=== PATIENT | female | born 1945 ===

== ENCOUNTER → 2018-07-01 20:02 | Outpatient (REF) | payer MEDICARE, SELFPAY ==
[2018-07-01 20:17] LABS: Add Manual Diff / Slide Review NO; Basophils Absolute Auto 100 /uL (0-100); Basophils Percent Auto 1.6 % (0-2); Eosinophils Absolute Auto 400 /uL (0-450); Eosinophils Percent Auto 4.3 % (2-4); Hematocrit 45.1 % (36-46); Hemoglobin 14.9 g/dL (12.0-16.0); Lymphocytes Absolute Auto 2200 /uL (1100-4500); Mean Corpuscular Hemoglobin 28.4 PG (26-34); Mean Corpuscular Volume 86.1 fL (80-100); Monocytes Absolute Auto 600 /uL (0-900); Monocytes Percent Auto 7.1 % (3-14); Neutrophils Absolute Auto 5200 /uL (1500-7000); Platelet Count 484 X10^3/uL (150-400); Red Blood Cell Count 5.24 X10^6/uL (4.0-5.2); Red Cell Distribution Width 13.9 % (11.6-14.8); White Blood Cell Count 8.5 X10^3/uL (4.5-11.0)
[2018-07-01 20:23] LABS: Alanine Aminotransferase 58 IU/L (9-52); Albumin 4.6 g/dL (3.5-5.0); Albumin Globulin Ratio 1.8 (1.0-2.8); Alkaline Phosphatase 87 U/L (38-126); Aspartate Aminotransferase 27 IU/L (14-36); BUN Creatinine Ratio 27.1 (6-22); Bilirubin Total 0.5 mg/dL (0.2-1.3); Blood Urea Nitrogen 19 mg/dL (7-17); Calcium 11.1 mg/dL (8.4-10.2); Carbon Dioxide 28 mmol/L (22-32); Chloride 101 mmol/L (98-107); Cholesterol 184 mg/dL (140-199); Estimated Glomerular Filt Rate > 60.0 mL/min (>60); Globulin 2.6 g/dL (1.7-4.1); Glucose 124 mg/dL (80-110); HDL Cholesterol 51 mg/dL (40-60); HEMOLYSIS < 15 (0-50); LDL Cholesterol Calculated 68 mg/dL (<100); Sodium 141 mmol/L (137-145); Total Protein 7.2 g/dL (6.3-8.2); Triglycerides 326 mg/dL (35-150)
[2018-07-01 20:36] LABS: Hemoglobin A1C% w Est Avg Glu 6.5 % (4.0-6.0)
== END ==
LOC: LAB 20:02
PROVIDERS: Visit Provider Family Medicine Geriatric Medicine
DX: E78.5 Hyperlipidemia, unspecified (principal); E11.9 Type 2 diabetes mellitus without complications
CPT/HCPCS: 36415; 80053; 80061; 83036; 85025

== ENCOUNTER → 2018-07-12 18:30 | Outpatient (REF) | payer MEDICARE, SELFPAY ==
[2018-07-12 19:48] LABS: Calcium 10.8 mg/dL (8.4-10.2); Phosphorous 4.1 mg/dL (2.8-4.1)
[2018-07-16 10:46] LABS: Estimated Glomerular Filt Rate > 60.0 mL/min (>60)
[2018-07-16 13:53] LABS: Parathyroid Hormone Int 35 pg/mL (14-64)
== END ==
LOC: LAB 18:30
PROVIDERS: Visit Provider Family Medicine Geriatric Medicine
DX: E21.5 Disorder of parathyroid gland, unspecified (principal); Z01.812 Encounter for preprocedural laboratory examination; E04.1 Nontoxic single thyroid nodule
CPT/HCPCS: 36415; 82310; 82565; 83970; 84100

== ENCOUNTER 2019-04-02 16:28 | Emergency (ER) | payer MEDICARE, SELFPAY ==
--- NOTE | 2019-04-02 16:33 | DI.CT.S_ITS ---
PROCEDURE: CT HEAD/BRAIN WO CON INDICATIONS: fall out bed recent craniotomy TECHNIQUE: Noncontrast 4.5 mm thick angled axial sections acquired from the foramen magnum to the vertex, with coronal and sagittal reformats. For radiation dose reduction, the following was used: automated exposure control, adjustment of mA and/or kV according to patient size. COMPARISON: None. FINDINGS: Image quality: Excellent. Brain: There are postsurgical changes status post left frontal-temporal craniotomy with partial resection of the left temporal lobe. There are 2 small indistinct curvilinear areas of high attenuation along the posterior and medial margins of the surgical cavity compatible with blood product of indeterminate acuity. There is also a linear region of high attenuation along the anteroinferior aspect of the surgical tract which may represent blood product or surgical mesh. Elsewhere, a small amount of residual subdural fluid and gas is demonstrated consistent with recent surgery. There is minimal rightward midline shift of approximately 3 mm. There is a small region of the encephalomalacia within the anterior left frontal lobe at the vertex. Skull and face: Post surgical changes are demonstrated consistent with prior left frontal temporal craniotomy. No definite acute fractures. Sinuses: Visualized sinuses and mastoids are clear. IMPRESSION: 1. Extensive post surgical changes demonstrated status post left frontal-temporal craniotomy and temporal lobe resection as described. 2. Small areas of curvilinear high attenuation along the posterior and medial margins of the surgical cavity are compatible with the product of indeterminate acuity. The differential also includes possible high density tumor given history of meningioma. Recommend comparison with prior outside studies when available. 3. Small region of high attenuation along the anteroinferior margin of the surgical cavity and also represent a small amount of blood product versus high attenuation related to the surgical mesh. 4. Minimal rightward midline shift of approximately 3 mm. Findings discussed with Dr. Shen on 04/02/19 at 5:15 PM. Dictated by: Indra Betancur M.D. on 04/02/2019 at 17:06 Approved by: Indra Betancur M.D. on 04/02/2019 at 17:16
[2019-04-02 16:39] VITALS: BP 154/106; PULSE 95; RESP 16; O2SAT 96
--- NOTE | 2019-04-02 16:39 | ED.HEATRA ---
HPI - Head Injury General Chief complaint: Fall Stated complaint: Fall Time Seen by Provider: 04/02/19 16:33 Source: patient, EMS and old records reviewed History of Present Illness HPI Narrative: Patient is a 73-year-old female with history of malignant meningioma of the brain with recent craniotomy and admission to [facility]. [facility] and [facility] to [facility]. She has been at 50 elbow today. She unfortunately rolled out of bed she has a scrape on her head. She does have some baseline mental capacity problems and speech difficulty. states that she is at her baseline. She is possibly getting subcu heparin still it is unclear if she got that today. She has a very small superficial scrape on the top of her scalp. She is able to follow commands. But overall is an extremely poor historian, and not able to communicate well MD Complaint: head injury Review of Systems Review of Systems ROS Unobtainable: Unobtainable due to medical condition Exam Initial Vital Signs Initial Vital Signs: Vital Signs Pulse Rate 95 H 04/02/19 16:39 Respiratory Rate 16 04/02/19 16:39 Blood Pressure 154/106 H 04/02/19 16:39 Pulse Oximetry 96 04/02/19 16:39 GENERAL: Alert female good eye contact HEENT: Head atraumatic superficial scrape at the top of her head postsurgical change,EOMI, pupils reactive, face symmetric, CARDIOVASCULAR: Regular rate and rhythm without murmurs, rubs or gallops. RESPIRATORY: Breath sounds equal bilaterally, no wheezes rales or rhonchi. ABDOMEN: Soft, nontender. Normoactive bowel sounds all 4 quadrants. No guarding or rebound. EXTREMITIES: Normal range of motion, no clubbing or edema. Neurovascularly intact NEUROLOGICAL: Alert speech is clear but has word salad SKIN: Warm, dry, no laceration, no petechiae, no rashes or lesions. Course Orders Ordered: ED Orders 04/02/19 16:33 CT head/brain wo con Stat Vital Signs Vital signs: Vital Signs - 8 hr 04/02/19 16:39 04/02/19 17:33 04/02/19 18:35 Pulse Rate 95 H 92 H 91 H Respiratory Rate 16 12 14 Blood Pressure 154/106 H Blood Pressure [Left Arm] 149/83 H 153/82 H Pulse Oximetry 96 99 96 MDM - Head Injury Imaging Data CT scan - head: Radiologist's impression: PROCEDURE: CT HEAD/BRAIN WO CON INDICATIONS: fall out bed recent craniotomy TECHNIQUE: Noncontrast 4.5 mm thick angled axial sections acquired from the foramen magnum to the vertex, with coronal and sagittal reformats. For radiation dose reduction, the following was used: automated exposure control, adjustment of mA and/or kV according to patient size. COMPARISON: None. FINDINGS: Image quality: Excellent. Brain: There are postsurgical changes status post left frontal-temporal craniotomy with partial resection of the left temporal lobe. There are 2 small indistinct curvilinear areas of high attenuation along the posterior and medial margins of the surgical cavity compatible with blood product of indeterminate acuity. There is also a linear region of high attenuation along the anteroinferior aspect of the surgical tract which may represent blood product or surgical mesh. Elsewhere, a small amount of residual subdural fluid and gas is demonstrated consistent with recent surgery. There is minimal rightward midline shift of approximately 3 mm. There is a small region of the encephalomalacia within the anterior left frontal lobe at the vertex. Skull and face: Post surgical changes are demonstrated consistent with prior left frontal temporal craniotomy. No definite acute fractures. Sinuses: Visualized sinuses and mastoids are clear. IMPRESSION: 1. Extensive post surgical changes demonstrated status post left frontal-temporal craniotomy and temporal lobe resection as described. 2. Small areas of curvilinear high attenuation along the posterior and medial margins of the surgical cavity are compatible with the product of indeterminate acuity. The differential also includes possible high density tumor given history of meningioma. Recommend comparison with prior outside studies when available. 3. Small region of high attenuation along the anteroinferior margin of the surgical cavity and also represent a small amount of blood product versus high attenuation related to the surgical mesh. 4. Minimal rightward midline shift of approximately 3 mm. Findings discussed with Dr. Shen on 04/02/19 at 5:15 PM. Dictated by: Indra Betancur M.D. on 04/02/2019 at 17:06 Approved by: Indra Betancur M.D. on 04/02/2019 at 17:16 [facility] Narrative Medical decision making narrative: I received records from [facility]. It does appear that she had some sort imaging done on 04/01/2019 MRI of the brain. I discussed case with the radiologist who read her head CT I read him the report over the phone. Unable to push images to directly compare the images. However reports remained similar.Patient clinically does not appear that she had significant trauma to the head. She continues to be at her baseline mental status per the . She will return to [facility] rehab facility. Discharge Plan Departure Patient Disposition: Home Clinical Impression: Closed head injury Qualifiers: Encounter type: initial encounter Qualified Code(s): S09.90XA - Unspecified injury of head, initial encounter Discharge Date/Time: 04/02/19 19:15 Instructions: Closed Head Injury Activity Restrictions/Additional Instructions: *You have been diagnosed with closed head injury *What to do: At this time scans look relatively stable and the same *Continue to take medications as directed *Follow up with your primary care provider in 2-3 days *Return to ER if you should have change in behavior, confusion, recurrent falls or any new, worsening or concerning symptoms
[2019-04-02 17:33] VITALS: BP 149/83; PULSE 92; RESP 12; O2SAT 99
[2019-04-02 18:35] VITALS: BP 153/82; PULSE 91; RESP 14; O2SAT 96
== END 2019-04-02 19:15 | disposition home or self-care (01) ==
PROVIDERS: Emergency Provider Emergency Medicine
DX: S09.90XA Unspecified injury of head, initial encounter (principal); R41.82 Altered mental status, unspecified; Z98.890 Other specified postprocedural states; W06.XXXA Fall from bed, initial encounter
CPT/HCPCS: 70450; 99283; 99284

== ENCOUNTER 2019-04-03 13:07 | Emergency (ER) | payer MEDICARE, SELFPAY ==
[2019-04-03 13:16] VITALS: BP 150/89; PULSE 98; RESP 16; TEMP 37; O2SAT 95
--- NOTE | 2019-04-03 13:18 | ED_ITS ---
HPI - Altered Mental Status General Chief Complaint: Neuro Symptoms/Deficit Stated Complaint: mental status change Time Seen by Provider: 04/03/19 13:07 Source: EMS Mode of arrival: EMS Limitations: altered mental status History of Present Illness HPI narrative: Patient sent to the emergency department for alteration in mental status, according to her care facility. Medics state that they were called and that when they arrived at the facility, nobody seemed to know the patient, and they were told the patient's nurse was not available, as shift change should just occurred. The medics state that they were told by the staff that was there that the patient had been awake earlier in the day and now was very sleepy. The patient just arrived at [facility] yesterday after an extended admission and left frontotemporal craniotomy for meningioma. The patient was sent to the emergency department yesterday by different staff for a similar episode of falling deeply asleep after being distinctly awake. The patient was worked up with labs, urinalysis, and CT scan of the brain, which did not show anything acute or emergently concerning. The patient was discharged back to the facility where she has not developed any further problems overnight. The patient is not able to offer any information at this time, as she is heavily somnolent. Related Data Home Medications Medication Instructions Recorded Confirmed amlodipine 5 mg PO DAILY 04/08/19 04/08/19 ascorbic acid (vitamin C) 1,000 mg PO DAILY 04/08/19 04/08/19 atorvastatin 10 mg PO BEDTIME 04/08/19 04/08/19 bisacodyl 10 mg [place] DAILY PRN 04/08/19 04/08/19 cholecalciferol (vitamin D3) 5,000 unit PO BID 04/08/19 04/08/19 [Vitamin D3] cyanocobalamin (vitamin B-12) 500 mcg PO DAILY 04/08/19 04/08/19 heparin (porcine) 5,000 unit SUBCUT Q12H 04/08/19 04/08/19 insulin lispro 1 sliding scale dose SUBCUT 04/08/19 04/08/19 USEASDIRECTD lacosamide 300 mg PO BID 04/08/19 04/08/19 levetiracetam 750 mg PO BID 04/08/19 04/08/19 metformin 500 mg PO BID 04/08/19 04/08/19 omega-3 fatty acids-fish oil [Fish 1 cap PO DAILY 04/08/19 04/08/19 Oil] ondansetron 4 mg PO Q8H PRN 04/08/19 04/08/19 sodium chloride 1,000 mg PO QD-QID 04/08/19 04/08/19 tamsulosin 0.4 mg PO QPM 04/08/19 04/08/19 vitamin E 400 unit PO DAILY 04/08/19 04/08/19 Allergies Allergy/AdvReac Type Severity Reaction Status Date / Time No Known Drug Allergies Allergy Verified 04/03/19 13:25 Review of Systems Review of Systems ROS Unobtainable: Unobtainable due to mental status/LOC Patient History Medical History Closed head injury (Inactive) Meningioma (Acute) Surgical History H/O craniotomy (Acute) S/P lobectomy of brain (Acute) Family History (Updated 04/08/19 @ 01:53 by ANGE Salas) Father Cancer Mother Alcoholic Brother No significant medical problems Sister No significant medical problems Social History Smoking Status: Former smoker alcohol intake: current Exam Initial Vital Signs Initial Vital Signs: Vital Signs Temperature 98.6 F 04/03/19 13:16 Pulse Rate 98 H 04/03/19 13:16 Respiratory Rate 16 04/03/19 13:16 Blood Pressure 150/89 H 04/03/19 13:16 Pulse Oximetry 95 04/03/19 13:16 Const General: cooperative (Patient does follow some commands with stimulation.) and well developed Nutritional Appearance: well nourished Orientation: not alert (Patient sits in bed with her eyes closed.) [facility] Head: normocephalic and atraumatic Ears: external ears normal Nose: external nose normal and No nasal discharge Face and sinus: face symmetric and No dry mucous membranes Mouth: oral mucosae normal and moist mucous membranes Teeth and gingiva: dentition normal Eyes General: appearance normal, both eyes and all related structures Eyelids: eyelids normal Conjunctivae: conjunctivae normal Sclera: sclerae normal Pupils: PERRL EOM: EOM intact bilaterally Neck Neck: normal visual inspection, trachea midline, No lymphadenopathy, No midline deformity and No JVD Lymphatic: No lymphedema Chest Chest: normal inspection of the chest Resp Effort & Inspection: normal respiratory effort, able to speak in complete sentences, no respiratory distress and no use of accessory muscles Auscultation: clear to auscultation bilaterally, no rales, no rhonchi and no wheezes Cardio Rate: regular rate Rhythm: regular rhythm Heart Sounds: no click, no gallops, no murmurs and no rubs Pulses: normal peripheral pulses GI Inspection: non-distended Palpation: soft, no hepatosplenomegaly, No guarding, No pulsatile mass and No tender Back/Spine/Pelvis Back: No CVA tenderness Cervical Spine: cervical ROM normal and No pain with cervical ROM Thoracic/Lumbar Spine: thoracic and lumbar spine normal to inspection Skin General: no rashes or lesions noted, No jaundice and No petechiae Neuro Other: The patient sits in bed with eyes closed. She does not open her eyes or respond to voice, but does say how and reaches her hand toward her chest when I give her a sternal rub. Extrem General: full ROM, no clubbing, cyanosis or edema, no pedal edema and no calf tenderness Psych Appearance: well kempt Mental Status: mental status grossly normal Attitude: cooperative Thought Content: normal and suicidality Judgment: judgment good Course Course Course Narrative: I did review the patient's records, as she was just here yesterday for the same thing and the medics felt that the patient was not any different today than she had been yesterday. The patient is DNR with comfort measures only, and I did not feel that it was appropriate to do tests on her if this is a similar occurrence to yesterday and she has already had extensive workup for it. The patient was quite somnolent in the emergency department, but when I placed an ammonia capsule under her nose, she did immediately began to arouse and became alert and was able to answer some questions. The patient had no complaints upon questioning, when she was awake, and given her large and negative workup yesterday did not feel that a repeat workup was indicated, as patient was arousable, hemodynamically stable, and without complaints. Orders Ordered: Discontinued Medications Ammonia (Aromatic Spirit) (Ammonia Inhalant) 1 each INH NOW ONE Stop: 04/03/19 13:16 Last Admin: 04/03/19 13:46 Dose: 1 each Documented by: [facility] - Altered Mental Status Medical Records Attestation: I reviewed the patient's medical records. Discharge Plan Departure Patient Disposition: Home Clinical Impression: Acute on chronic alteration in mental status Discharge Date/Time: 04/03/19 15:40 Instructions: DI for Altered Mental Status Activity Restrictions/Additional Instructions: No emergent cause of Kady's symptoms has been found today. She was easily arousable with olfactory stimuli. Extensive workup, including labs and CT scan of the head, was done yesterday for the same symptoms and was negative. There is no indication for repeat head CT today. Kady's vital signs are normal. Given her desire for comfort measures only, it is not appropriate at this time to subject her to extensive testing that has been done within the last 24 hours already. She will need plenty of rest during these weeks of recovery, and should be allowed to do so. If Kady develops fevers or vomiting, or new neurologic deficits, then family may be consulted to determine whether they would like to have her further evaluated or not. Prescriptions: No Action metformin 500 mg Tablet 500 mg PO BID RF: 0 ascorbic acid (vitamin C) 1,000 mg Tablet 1,000 mg PO DAILY RF: 0 atorvastatin 10 mg Tablet 10 mg PO BEDTIME RF: 0 sodium chloride 1 gram Tablet 1,000 mg PO QD-QID RF: 0 amlodipine 5 mg Tablet 5 mg PO DAILY RF: 0 bisacodyl 10 mg Suppository 10 mg [place] DAILY PRN (Reason: Constipation) RF: 0 levetiracetam 750 mg Tablet 750 mg PO BID RF: 0 ondansetron 4 mg Tablet,Disintegrating 4 mg PO Q8H PRN (Reason: Nausea) RF: 0 heparin (porcine) 5,000 unit/mL Solution 5,000 unit SUBCUT Q12H RF: 0 insulin lispro 100 unit/mL Cartridge 1 sliding scale dose SUBCUT USEASDIRECTD RF: 0 lacosamide 100 mg Tablet 300 mg PO BID RF: 0 cyanocobalamin (vitamin B-12) 500 mcg Tablet 500 mcg PO DAILY RF: 0 tamsulosin 0.4 mg Capsule 0.4 mg PO QPM RF: 0 vitamin E 400 unit Capsule 400 unit PO DAILY RF: 0 cholecalciferol (vitamin D3) [Vitamin D3] 1,000 unit Capsule 5,000 unit PO BID RF: 0 omega-3 fatty acids-fish oil [Fish Oil] 360-1,200 mg Capsule 1 cap PO DAILY RF: 0
--- NOTE | 2019-04-03 13:44 | PC.NURSE ---
medics reports that she has been having a decrease in her mental status. pt woke up with ammonia inhalant that md used at bedside. very soft spoken. few words.
[2019-04-03] MEDS: AMMONIA INHALANT 1 EACH INH (13:46)
[2019-04-03 13:57] VITALS: BP 139/98; PULSE 103; RESP 20; O2SAT 96
--- NOTE | 2019-04-03 14:09 | PC.NURSE ---
report given to angie del toro at [facility].
[2019-04-03 14:15] VITALS: BP 159/95; PULSE 108; RESP 12; O2SAT 99
[2019-04-03 15:30] VITALS: BP 154/90; PULSE 104; RESP 19; O2SAT 97
== END 2019-04-03 15:40 | disposition home or self-care (01) ==
PROVIDERS: Emergency Provider Emergency Medicine
DX: R41.82 Altered mental status, unspecified (principal)
CPT/HCPCS: 93041; 99283

== ENCOUNTER 2019-04-07 22:45 | Observation (INO) | payer MEDICARE, SELFPAY ==
--- NOTE | 2019-04-07 22:46 | DI.CT.S_ITS ---
PROCEDURE: CT HEAD/BRAIN WO CON INDICATIONS: stroke TECHNIQUE: Noncontrast 4.5 mm thick angled axial sections acquired from the foramen magnum to the vertex, with coronal and sagittal reformats. For radiation dose reduction, the following was used: automated exposure control, adjustment of mA and/or kV according to patient size. COMPARISON: [facility], CT, CT HEAD/BRAIN WO CON, 04/02/2019, 16:40. FINDINGS: Image quality: Excellent. CSF spaces: Basal cisterns are patent. The ventricles are stable in size and shape. Brain: There are stable postoperative changes from left frontotemporal craniotomy and partial resection of the left temporal lobe. Previously noted hemorrhagic products in the posterior margins of the resection cavity has decreased substantially. Mild residual left to rightward shift of midline structures of approximately 3 mm. Small amount of residual extra-axial fluid and pneumocephalus along the left frontotemporal convexity, underlying the craniotomy site. Mild encephalomalacia involving the vertex at the posterior left parietal region. There is cerebral volume loss for age, with resultant ventricular and sulcal prominence. There are periventricular and deep white matter chronic small vessel ischemic changes. There is intracranial internal carotid artery atherosclerosis. Skull and face: Stable postsurgical changes from left frontotemporal craniotomy. Calvarium and visualized facial bones are otherwise intact, without suspicious lesions. Sinuses: Visualized sinuses and mastoids are clear. IMPRESSION: 1. Stable postsurgical changes of left frontotemporal craniotomy and partial left temporal lobe resection. Interval decrease in amount of hemorrhagic products noted previously in the posterior margins of the resection cavity. 2. Minimal persistent left to rightward shift of midline structures of approximately 3 mm. 3. Stable appearance of persistent pneumocephalus and extra-axial fluid collection along the left frontotemporal convexity at the site of craniotomy. Findings are likely related to surgical change. Findings were discussed with Dr. Mohan by the overnight radiologist at 2312 hrs. No significant discrepancy with the fish fryer radiology preliminary report. Dictated by: Thomas Sellers M.D. on 04/08/2019 at 7:36 Approved by: Thomas Sellers M.D. on 04/08/2019 at 7:53
--- NOTE | 2019-04-07 22:55 | ED.AMS ---
HPI - Altered Mental Status General Chief Complaint: Neuro Symptoms/Deficit Stated Complaint: Code Stroke Time Seen by Provider: 04/07/19 22:46 Source: patient and EMS Mode of arrival: EMS Limitations: altered mental status History of Present Illness HPI narrative: 73F nonsmoker with relatively recent history of resection of malignant melanoma presents to the emergency department as a code stroke due to sudden onset change in mentation approximately 30 minutes prior to her arrival. Patient is brought in by EMS as a code stroke and taken directly to CT scan. She is severely a ton did and not following commands and nursing staff question whether not she had right-sided weakness. She has had no falls, injuries nor fever or vomiting. Patient was discharged from [facility] to [facility] and has had two visits to our ED this week for similar scenarios MD complaint: altered mental status, confusion and decreased responsiveness Onset (ago): minute(s) Timing confirmed by: caregiver Severity: moderate Consistency of symptoms: constant Context: history of similar presentation Treatments prior to arrival: oxygen Related Data Home Medications Medication Instructions Recorded Confirmed amlodipine 5 mg PO DAILY 04/08/19 04/08/19 ascorbic acid (vitamin C) 1,000 mg PO DAILY 04/08/19 04/08/19 atorvastatin 10 mg PO BEDTIME 04/08/19 04/08/19 bisacodyl 10 mg OK DAILY PRN 04/08/19 04/08/19 cholecalciferol (vitamin D3) 5,000 unit PO BID 04/08/19 04/08/19 [Vitamin D3] cyanocobalamin (vitamin B-12) 500 mcg PO DAILY 04/08/19 04/08/19 heparin (porcine) 5,000 unit SUBCUT Q12H 04/08/19 04/08/19 insulin lispro 1 sliding scale dose SUBCUT 04/08/19 04/08/19 USEASDIRECTD lacosamide 300 mg PO BID 04/08/19 04/08/19 levetiracetam 750 mg PO BID 04/08/19 04/08/19 metformin 500 mg PO BID 04/08/19 04/08/19 omega-3 fatty acids-fish oil [Fish 1 cap PO DAILY 04/08/19 04/08/19 Oil] ondansetron 4 mg PO Q8H PRN 04/08/19 04/08/19 sodium chloride 1,000 mg PO QD-QID 04/08/19 04/08/19 tamsulosin 0.4 mg PO QPM 04/08/19 04/08/19 vitamin E 400 unit PO DAILY 04/08/19 04/08/19 Allergies Allergy/AdvReac Type Severity Reaction Status Date / Time No Known Drug Allergies Allergy Verified 04/03/19 13:25 Review of Systems Review of Systems ROS Unobtainable: Unobtainable due to medical condition Patient History Medical History Diabetes type 2, controlled (Acute) Hypertension (Acute) Meningioma (Acute) Mixed hyperlipidemia (Acute) Surgical History H/O craniotomy (Acute) History of hysterectomy (Acute) History of tubal ligation (Acute) S/P lobectomy of brain (Acute) Family History (Updated 04/08/19 @ 01:53 by ANGE Salas) Father Cancer Mother Alcoholic Brother No significant medical problems Sister No significant medical problems Social History Smoking Status: Former smoker alcohol intake: current Substance Use Type: does not use Exam Narrative Exam Narrative: GENERAL: [73] year old patient appears stated age. Obtunded, not following commands, guarding airway. HEAD: Atraumatic. Normocephalic. EYES: Pupils equal round and reactive. Extraocular motions intact. No scleral icterus. No injection or drainage. ENT: Nose without bleeding, purulent drainage. Throat without erythema, tonsillar hypertrophy or exudate. Airway patent. NECK: Trachea midline. Non tender CARDIOVASCULAR: Regular rate and rhythm without murmurs, gallops, or rubs. RESPIRATORY: Clear to auscultation. Breath sounds equal bilaterally. No wheezes, rales, or rhonchi. GASTROINTESTINAL: Abdomen soft, non-tender, nondistended. EXTREMITIES: No edema or joint tenderness. BACK: Nontender without deformity or crepitance. No flank tenderness. SKIN: No rash or erythema of visible areas Initial Vital Signs Initial Vital Signs: Vital Signs Temperature 98.1 F 04/07/19 22:56 Pulse Rate 95 H 04/07/19 22:56 Respiratory Rate 18 04/07/19 22:56 Blood Pressure 187/87 H 04/07/19 22:56 Pulse Oximetry 95 04/07/19 22:56 Scores NIH Stroke Scale Level of Conciousness: Not alert, requires repeated stimulation to attend, or is obtunded Ask month/age: Answers neither question correctly, aphasic, stuporous, coma Open/close eyes, close hand: Performs neither task correctly Best gaze horizontal: Normal Visual barnhart: No visual loss Facial palsy: Normal symetrical movement Left arm drift: Some effort against gravity, cannot maintain, drifts down to bed Right arm drift: Some effort against gravity, cannot maintain, drifts down to bed Left leg drift: Some effort against gravity, cannot maintain, drifts down to bed Right leg drift: Some effort against gravity, cannot maintain, drifts down to bed Limb ataxia: Absent Sensory on face/arms/legs: Severe to total sensory loss, not aware of touch, coma, quadriplegic Best language: Mute, global aphasia Dysarthria: Severe, unintelligible Extinction or inattention: Profound ericka-inattention. Does not recognize own hand, one side Total NIH Stroke scale score: 23 Course Orders Ordered: Amlodipine Besylate (Norvasc) 5 mg PO DAILY [facility] Last Admin: 04/11/19 08:34 Dose: 5 mg Documented by: Admin: 04/10/19 08:42 Dose: 5 mg Documented by: Admin: 04/09/19 08:55 Dose: 5 mg Documented by: Admin: 04/08/19 10:35 Dose: 5 mg Documented by: DAVID Ascorbic Acid (Vitamin C) 1,000 mg PO DAILY [facility] Last Admin: 04/11/19 08:34 Dose: 1,000 mg Documented by: Admin: 04/10/19 08:43 Dose: 1,000 mg Documented by: Admin: 04/09/19 08:55 Dose: 1,000 mg Documented by: Admin: 04/08/19 11:45 Dose: Not Given Documented by: DAVID Atorvastatin Calcium (Lipitor) 10 mg PO BEDTIME [facility] Last Admin: 04/10/19 22:23 Dose: 10 mg Documented by: Admin: 04/09/19 21:26 Dose: 10 mg Documented by: Admin: 04/08/19 21:12 Dose: 10 mg Documented by: AWALKER Bisacodyl (Dulcolax) 10 mg OK DAILY PRN PRN Reason: Constipation Cyanocobalamin (Vitamin B-12) 500 mcg PO DAILY [facility] Last Admin: 04/11/19 08:41 Dose: 500 mcg Documented by: Admin: 04/10/19 08:42 Dose: 500 mcg Documented by: Admin: 04/09/19 08:56 Dose: 500 mcg Documented by: Admin: 04/08/19 11:45 Dose: Not Given Documented by: DAVID Dextrose (D50w) 25 gm IV PRN PRN; Protocol PRN Reason: Hypoglycemia Docusate Sodium (Colace) 100 mg PO BID [facility] Last Admin: 04/11/19 08:34 Dose: 100 mg Documented by: Admin: 04/10/19 22:23 Dose: 100 mg Documented by: Admin: 04/10/19 08:42 Dose: 100 mg Documented by: Admin: 04/09/19 21:26 Dose: 100 mg Documented by: TRISTEN Heparin Sodium (Porcine) (Heparin) 5,000 unit SUBCUT BID [facility] Last Admin: 04/11/19 08:34 Dose: 5,000 unit Documented by: Admin: 04/10/19 22:23 Dose: 5,000 unit Documented by: Admin: 04/10/19 08:42 Dose: 5,000 unit Documented by: Admin: 04/09/19 21:26 Dose: 5,000 unit Documented by: Admin: 04/09/19 08:56 Dose: 5,000 unit Documented by: Admin: 04/08/19 21:12 Dose: 5,000 unit Documented by: Admin: 04/08/19 10:35 Dose: 5,000 unit Documented by: DAVID Sodium Chloride (Normal Saline 0.9%) 1,000 mls @ 100 mls/hr IV CONT [facility] Last Admin: 04/11/19 12:39 Dose: 100 mls/hr Documented by: ALIYA Levetiracetam 1,500 mg/ Sodium (Chloride) 115 mls @ 460 mls/hr IV BID [facility] Insulin Aspart (Novolog Flexpen) 0 unit SUBCUT ACHS [facility]; Protocol Last Admin: 04/11/19 12:23 Dose: Not Given Documented by: Admin: 04/11/19 08:42 Dose: Not Given Documented by: Admin: 04/10/19 22:19 Dose: Not Given Documented by: Admin: 04/10/19 17:20 Dose: Not Given Documented by: Admin: 04/10/19 12:34 Dose: Not Given Documented by: Admin: 04/10/19 08:32 Dose: Not Given Documented by: Admin: 04/09/19 21:27 Dose: Not Given Documented by: TRISTEN Metformin HCl (Glucophage) 500 mg PO BID [facility] Admin: 04/11/19 08:34 Dose: 500 mg Documented by: Admin: 04/10/19 22:23 Dose: 500 mg Documented by: Admin: 04/10/19 08:42 Dose: 500 mg Documented by: Admin: 04/09/19 21:25 Dose: 500 mg Documented by: Admin: 04/09/19 08:55 Dose: 500 mg Documented by: Admin: 04/08/19 21:13 Dose: 500 mg Documented by: Admin: 04/08/19 11:46 Dose: Not Given Documented by: DAVID Lacosamide 100mg 100 mg PO BID [facility] Admin: 04/11/19 08:40 Dose: 100 mg Documented by: Admin: 04/10/19 23:31 Dose: 100 mg Documented by: Admin: 04/10/19 08:44 Dose: 100 mg Documented by: Admin: 04/09/19 21:24 Dose: 100 mg Documented by: Admin: 04/09/19 08:56 Dose: 100 mg Documented by: Admin: 04/08/19 21:12 Dose: 100 mg Documented by: Admin: 04/08/19 11:35 Dose: 100 mg Documented by: DAVID Lacosamide 200mg 200 mg PO BID [facility] Admin: 04/11/19 08:35 Dose: 200 mg Documented by: Admin: 04/10/19 23:32 Dose: 200 mg Documented by: Admin: 04/10/19 08:43 Dose: 200 mg Documented by: Admin: 04/09/19 21:24 Dose: 200 mg Documented by: Admin: 04/09/19 08:56 Dose: 200 mg Documented by: Admin: 04/08/19 21:12 Dose: 200 mg Documented by: Admin: 04/08/19 11:35 Dose: 200 mg Documented by: DAVID Ondansetron HCl (Zofran) 4 mg IV Q8HR PRN PRN Reason: Nausea And Vomiting Polyethylene Glycol (Miralax) 17 gm PO DAILY [facility] Admin: 04/11/19 08:34 Dose: 17 gm Documented by: Admin: 04/10/19 08:41 Dose: 17 gm Documented by: LINDSEY Sodium Chloride (Sodium Chloride) 1,000 mg PO BID [facility] Admin: 04/11/19 08:35 Dose: 1,000 mg Documented by: Admin: 04/10/19 23:32 Dose: 1,000 mg Documented by: Admin: 04/10/19 08:44 Dose: 1,000 mg Documented by: Admin: 04/09/19 21:25 Dose: 1,000 mg Documented by: Admin: 04/09/19 08:57 Dose: 1,000 mg Documented by: Admin: 04/08/19 21:11 Dose: 1,000 mg Documented by: Admin: 04/08/19 11:46 Dose: Not Given Documented by: DAVID Sodium Chloride (Normal Saline 0.9% Flush) 10 ml IV BID [facility] Admin: 04/11/19 08:38 Dose: 10 ml Documented by: Admin: 04/10/19 22:23 Dose: 10 ml Documented by: Admin: 04/10/19 09:08 Dose: 10 ml Documented by: Admin: 04/09/19 21:26 Dose: 10 ml Documented by: Admin: 04/09/19 08:57 Dose: 10 ml Documented by: PABLO Sodium Chloride (Normal Saline 0.9% Flush) 10 ml IV PRN PRN PRN Reason: Flush Vitamin D (Vitamin D3) 5,000 unit PO BID [facility] Admin: 04/11/19 08:33 Dose: 5,000 unit Documented by: Admin: 04/10/19 22:23 Dose: 5,000 unit Documented by: Admin: 04/10/19 08:42 Dose: 5,000 unit Documented by: Admin: 04/09/19 21:25 Dose: 5,000 unit Documented by: Admin: 04/09/19 08:55 Dose: 5,000 unit Documented by: Admin: 04/08/19 21:12 Dose: 5,000 unit Documented by: Admin: 04/08/19 11:45 Dose: Not Given Documented by: DAVID Discontinued Medications Sodium Chloride (Normal Saline 0.9%) 1,000 mls @ 150 mls/hr IV CONT MISA Stop: 04/08/19 00:20 Last Infusion: 04/08/19 01:46 Dose: 75 mls/hr Documented by: Infusion: 04/08/19 01:34 Dose: 150 mls/hr Documented by: Admin: 04/07/19 23:09 Dose: 150 mls/hr Documented by: MARCELINO Levetiracetam 500 mg/ Sodium (Chloride) 105 mls @ 420 mls/hr IV NOW ONE Stop: 04/08/19 00:06 Last Infusion: 04/08/19 01:33 Dose: 0 mls/hr Documented by: Admin: 04/08/19 00:28 Dose: 420 mls/hr Documented by: MARCELINO Sodium Chloride (Normal Saline 0.9%) 1,000 mls @ 75 mls/hr IV CONT MISA Last Infusion: 04/09/19 11:20 Dose: 0 mls/hr Documented by: Admin: 04/08/19 23:42 Dose: 75 mls/hr Documented by: Infusion: 04/08/19 23:42 Dose: 75 mls/hr Documented by: Admin: 04/08/19 10:14 Dose: 75 mls/hr Documented by: Admin: 04/08/19 01:47 Dose: Not Given Documented by: ASHISH Magnesium Sulfate (Magnesium Sulfate) 4 gm in 100 mls @ 50 mls/hr IV NOW ONE Stop: 04/11/19 12:44 Last Admin: 04/11/19 11:06 Dose: 50 mls/hr Documented by: ALIYA Cosigned by: CALVIN Levetiracetam 1,000 mg/ Sodium (Chloride) 110 mls @ 440 mls/hr IV NOW ONE Stop: 04/11/19 10:52 Last Infusion: 04/11/19 11:30 Dose: 0 mls/hr Documented by: Admin: 04/11/19 11:14 Dose: 440 mls/hr Documented by: ALIYA Potassium Chloride 60 meq/ (Sodium Chloride) 530 mls @ 88.333 mls/hr IV NOW ONE Stop: 04/11/19 16:53 Last Admin: 04/11/19 11:56 Dose: 88.333 mls/hr Documented by: ALIYA Cosigned by: CALVIN Sodium Chloride (Normal Saline 0.9%) 500 mls @ 1,000 mls/hr IV BOLUS ONE Stop: 04/11/19 12:10 Last Admin: 04/11/19 11:58 Dose: 1,000 mls/hr Documented by: ALIYA Insulin Aspart (Novolog Flexpen) 0 unit SUBCUT ACHS [facility]; Protocol Last Admin: 04/08/19 06:12 Dose: Not Given Documented by: ASHISH Insulin Aspart (Novolog Flexpen) 0 unit SUBCUT Q6H [facility]; Protocol Last Admin: 04/09/19 21:13 Dose: Not Given Documented by: Admin: 04/09/19 12:49 Dose: 1 unit Documented by: PABLO Cosigned by: JAGJIT Admin: 04/09/19 06:22 Dose: Not Given Documented by: Admin: 04/09/19 00:06 Dose: Not Given Documented by: Admin: 04/08/19 18:04 Dose: Not Given Documented by: Admin: 04/08/19 13:48 Dose: 1 unit Documented by: DAVID Cosigned by: CHERELLE Levetiracetam (Keppra) 750 mg PO BID [facility] Last Admin: 04/10/19 09:08 Dose: 750 mg Documented by: Admin: 04/09/19 21:25 Dose: 750 mg Documented by: Admin: 04/09/19 09:09 Dose: 750 mg Documented by: Admin: 04/08/19 21:17 Dose: 750 mg Documented by: Admin: 04/08/19 10:34 Dose: 750 mg Documented by: DAVID Levetiracetam (Keppra) 1,000 mg PO BID [facility] Last Admin: 04/11/19 08:32 Dose: 1,000 mg Documented by: Admin: 04/10/19 22:36 Dose: 1,000 mg Documented by: SAI Lorazepam (Ativan) 2 mg IV NOW ONE Stop: 04/11/19 10:33 Last Admin: 04/11/19 11:10 Dose: Not Given Documented by: ALIYA Lorazepam (Ativan) 2 mg IV NOW ONE Stop: 04/11/19 10:52 Last Admin: 04/11/19 12:40 Dose: Not Given Documented by: ALIYA Non-Formulary Medication (Lacosamide) 300 mg PO BID [facility] Last Admin: 04/08/19 11:46 Dose: Not Given Documented by: DAVID Reevaluation(s) Reevaluation #1: patient becoming slightly more alert. Will follow commands such as opening eyes and sticking out tongue. She is still non verbal but will wiggle fingers and toes Time: 23:29 Vital Signs Vital signs: Vital Signs - 8 hr 04/07/19 22:56 04/07/19 23:01 04/07/19 23:41 Temperature 98.1 F Pulse Rate 95 H 97 H 92 H Respiratory Rate 18 17 18 Blood Pressure 187/87 H Blood Pressure [Right Arm] 174/90 H 166/89 H Pulse Oximetry 95 96 95 MDM - Altered Mental Status Lab Data Result diagrams: 04/11/19 06:50 04/11/19 06:50 Labs: Lab Results 04/07/19 04/07/19 04/07/19 Range/Units 22:55 22:55 22:55 WBC 7.9 (4.5-11.0) X10^3/uL RBC 4.60 (4.0-5.2) X10^6/uL Hgb 12.3 (12.0-16.0) g/dL Hct 38.0 (36-46) % MCV 82.7 (80-100) fL MCH 26.8 (26-34) PG MCHC 32.4 (30-36) % RDW 14.9 H (11.6-14.8) % Plt Count 646 H (150-400) X10^3/uL Neut % (Auto) 64.9 (50-75) % Lymph % (Auto) 24.5 L (25-40) % Vermilion % (Auto) 7.1 (3-14) % Eos % (Auto) 2.2 (2-4) % Baso % (Auto) 1.3 (0-2) % Neut # (Auto) 5100 (2900-9398) /uL Lymph # (Auto) 1900 (6001-3564) /uL Vermilion # (Auto) 600 (0-900) /uL Eos # (Auto) 200 (0-450) /uL Baso # (Auto) 100 (0-100) /uL PT 11.6 (10.1-12.7) SECONDS INR 1.0 (0.9-1.3) APTT 31 (26.4-36.2) SECONDS Sodium 136 L (137-145) mmol/L Potassium 3.7 (3.4-5.1) mmol/L Chloride 99 (98-107) mmol/L Carbon Dioxide 28 (22-32) mmol/L BUN 16 (7-17) mg/dL Creatinine 0.50 L (0.52-1.04) mg/dL Estimated GFR > 60.0 (>60) mL/min BUN/Creatinine Ratio 32.0 H (6-22) Glucose 159 H (80-110) mg/dL Calcium 10.7 H (8.4-10.2) mg/dL Magnesium (1.6-2.3) mg/dL Prolactin (3.0-18.6) ng/mL Levetiracetam (12.0-46.0) mcg/mL 04/07/19 04/07/19 04/07/19 Range/Units 22:55 22:55 22:55 WBC (4.5-11.0) X10^3/uL RBC (4.0-5.2) X10^6/uL Hgb (12.0-16.0) g/dL Hct (36-46) % MCV (80-100) fL MCH (26-34) PG MCHC (30-36) % RDW (11.6-14.8) % Plt Count (150-400) X10^3/uL Neut % (Auto) (50-75) % Lymph % (Auto) (25-40) % Vermilion % (Auto) (3-14) % Eos % (Auto) (2-4) % Baso % (Auto) (0-2) % Neut # (Auto) (8818-4238) /uL Lymph # (Auto) (4334-4284) /uL Vermilion # (Auto) (0-900) /uL Eos # (Auto) (0-450) /uL Baso # (Auto) (0-100) /uL PT (10.1-12.7) SECONDS INR (0.9-1.3) APTT (26.4-36.2) SECONDS Sodium (137-145) mmol/L Potassium (3.4-5.1) mmol/L Chloride (98-107) mmol/L Carbon Dioxide (22-32) mmol/L BUN (7-17) mg/dL Creatinine (0.52-1.04) mg/dL Estimated GFR (>60) mL/min BUN/Creatinine Ratio (6-22) Glucose (80-110) mg/dL Calcium (8.4-10.2) mg/dL Magnesium 1.9 (1.6-2.3) mg/dL Prolactin 129.0 H (3.0-18.6) ng/mL Levetiracetam 40.1 (12.0-46.0) mcg/mL Point of Care Testing Glucose POC [address] scan - head: Radiologist's impression: Small amount of residual intraparenchymal hemorrhage along the posterior aspect of the left temporal resection cavity. Overall the intraparenchymal hemorrhage has decreased from prior imaging. No significant interval changes Discharge Plan Departure Patient Disposition: Admitted as Observation Clinical Impression: Change in mental status Qualifiers: Altered mental status type: unspecified Qualified Code(s): R41.82 - Altered mental status, unspecified Clinical Impression: (Ruled Out): Cerebrovascular accident Discharge Date/Time: 04/08/19 01:35 Admit Date/Time: 04/08/19 00:34 Admit Provider: Merlin Vanegas
[2019-04-07 22:56] VITALS: BP 187/87; PULSE 95; RESP 18; TEMP 36.7; O2SAT 95
[2019-04-07 23:01] VITALS: BP 174/90; PULSE 97; RESP 17; O2SAT 96
[2019-04-07 23:03] LABS: Add Manual Diff / Slide Review NO; Basophils Absolute Auto 100 /uL (0-100); Basophils Percent Auto 1.3 % (0-2); Eosinophils Absolute Auto 200 /uL (0-450); Eosinophils Percent Auto 2.2 % (2-4); Hemoglobin 12.3 g/dL (12.0-16.0); Lymphocytes Absolute Auto 1900 /uL (1100-4500); Lymphocytes Percent Auto 24.5 % (25-40); Mean Corpuscular HGB Conc 32.4 % (30-36); Mean Corpuscular Hemoglobin 26.8 PG (26-34); Mean Corpuscular Volume 82.7 fL (80-100); Monocytes Absolute Auto 600 /uL (0-900); Monocytes Percent Auto 7.1 % (3-14); Neutrophils Absolute Auto 5100 /uL (1500-7000); Neutrophils Percent Auto 64.9 % (50-75); Platelet Count 646 X10^3/uL (150-400); Red Cell Distribution Width 14.9 % (11.6-14.8); White Blood Cell Count 7.9 X10^3/uL (4.5-11.0)
[2019-04-07 23:09] LABS: Prothrombin Time 11.6 SECONDS (10.1-12.7)
[2019-04-07] MEDS: SODIUM CHLORIDE 0.9% 1,000 ML 150 ML IV (23:09)
[2019-04-07] MEDS: ONDANSETRON 4 MG/2 ML INJ (23:10)
--- NOTE | 2019-04-07 23:10 | PC.NURSE ---
Pt vomiting small amt bilious secretions, C/O MEHTA. Dr Mohan notifed, 4mg zofran given IV. Oral care done, suction set up at bedside. Pt makes eye contact, poor verbal response. States, Hi. with prompting. Dr Mohan now at bedside.
[2019-04-07 23:12] LABS: PTT Partial Thromboplastin Tim 31 SECONDS (26.4-36.2)
[2019-04-07 23:13] LABS: Blood Urea Nitrogen 16 mg/dL (7-17); Calcium 10.7 mg/dL (8.4-10.2); Carbon Dioxide 28 mmol/L (22-32); Chloride 99 mmol/L (98-107); Estimated Glomerular Filt Rate > 60.0 mL/min (>60); Glucose 159 mg/dL (80-110); HEMOLYSIS < 15 (0-50); Potassium 3.7 mmol/L (3.4-5.1); Sodium 136 mmol/L (137-145)
[2019-04-07 23:41] VITALS: BP 166/89; PULSE 92; RESP 18; O2SAT 95
[2019-04-08] VITALS (8 sets, daily range): BP systolic 134–152; BP diastolic 65–87; PULSE 79–105; RESP 16–18; TEMP 35.9–36.6; O2SAT 95–99; BMI 20.5
[2019-04-08] MEDS: levETIRAcetam 500 MG in SODIUM CHLORIDE 0.9% 100 ML 420 ML IV (00:28)
[2019-04-08 00:38] LABS: Magnesium 1.9 mg/dL (1.6-2.3)
--- NOTE | 2019-04-08 01:23 | PM.HP.1 ---
History of Present Illness History of Present Illness Date Patient Seen: 04/08/19 Time Patient Seen: 01:02 Chief complaint: Code Stroke Narrative: Ms. Kady Hamm is a 73 year old female history significant for malignant meningioma status post craniotomy x2, hypertension, diabetes and hyperlipidemia presents to the ER via EMS from [facility] with altered mental status. The patient had been interacting with staff 30 minutes prior to her being found unresponsive. The patient is incapable of providing information and her is at bedside with limited information. The patient had craniotomy for an aggressive meningioma on 03/06/2019 involving resection of tumor tissue. The patient had postoperative seizures with what is described by the is video EEG for seizure activity. The patient is treated with and still taking levetiracetam and lacosamide, was stabilized and transferred to [facility] in [place] for acute rehab. The patient was unable to adequately participate and was subsequently transferred to [facility] in [place] for continued rehabilitation within the last week. Since being at a [facility] the patient has had 2 other ER visits the 1st for fall out of bed in a closed head injury with the patient functioning at baseline and the 2nd for altered mental status described by staff as being awake and difficult to arouse. There is no evidence of or report of trauma. The patient is incapable of providing any subjective information. Apparently baseline functioning the patient has speech difficulties but is able to follow commands. Upon arrival to the ER the patient is afebrile with temperature of 98.1?, heart rate of 95, blood pressure 187/87, respirations of 18 saturating 95% on room air. The patient was taken directly to CT scan as a code stroke. Radiologist's impression takes noted of the prior left frontal temporal craniotomy and partial resection of left temporal lobe: Small amount of residual intraparenchymal hemorrhage along the posterior aspect of left temporal resection cavity, overall the intraparenchymal hemorrhage has diminished from prior imaging, no significant interval changes from imaging from 04/02/2019, stable left to right midline shift of 3 mm and small amount of pneumocephalus along the left temporal convexity. Left urinalysis finds white count of 7.9, hemoglobin of 12.3, hematocrit of 30.0 platelets of 646. Her coagulation studies are within normal limits. On with lytes she has a sodium of 136, potassium of 3.7 her BUN is 16 with creatinine of 0.5. Her nonfasting glucose is 159. Calcium is noted to be elevated at 10.7 30 decreased from prior results. She is on both levetiracetam and lacosanide for seizures. The patient has demonstrated increasing responsiveness while in the ER consistent with postictal status. A levetiracetam level was drawn which is unfortunately a send out so 500 mg is given IV in the emergency department. The patient's does not have the patient's neurologist's name but will bring information to the hospital tomorrow. The patient is admitted to the medicine service with seizure and has not returned to baseline level of functioning. Patient History Medical History Diabetes type 2, controlled (Acute) Hypertension (Acute) Meningioma (Acute) Mixed hyperlipidemia (Acute) Surgical History H/O craniotomy (Acute) History of hysterectomy (Acute) History of tubal ligation (Acute) S/P lobectomy of brain (Acute) Family & Social History Family History (Updated 04/08/19 @ 01:53 by ANGE Salas) Father Cancer Mother Alcoholic Brother No significant medical problems Sister No significant medical problems Safety & Behavioral: Feels Safe in Current Yes Environment Tobacco & Substance use: Smoking Status Never smoker Substance Use Type does not use Comment: The patient has been residing with her on [facility] to whom she has been for 47 years. Her father at a young age 56 from colon cancer and mother at 94 and had been lifelong alcoholic. She has 1 brother and 2 sisters with no known health issues. Smoking: The patient had smoked briefly and sporadically in the past but quit long ago. Alcohol: Rare alcohol intake none recently. Substance use: No current substance use smoked marijuana as young adult. Advanced directive a POLST accompanies the patient which indicates DNR status with comfort measures only. The patient's is at bedside and agrees to the current plan of care including administration of anti seizure medication. Her Aly Hamm is the patient is surrogate decision maker. Meds Home Medications and Allergies Home Medications Medication Instructions Recorded Confirmed Type amlodipine 5 mg PO DAILY 04/08/19 04/08/19 History ascorbic acid (vitamin C) 1,000 mg PO DAILY 04/08/19 04/08/19 History atorvastatin 10 mg PO BEDTIME 04/08/19 04/08/19 History bisacodyl 10 mg NM DAILY PRN 04/08/19 04/08/19 History cholecalciferol (vitamin D3) 5,000 unit PO BID 04/08/19 04/08/19 History [Vitamin D3] cyanocobalamin (vitamin B-12) 500 mcg PO DAILY 04/08/19 04/08/19 History heparin (porcine) 5,000 unit SUBCUT Q12H 04/08/19 04/08/19 History insulin lispro 1 sliding scale dose SUBCUT 04/08/19 04/08/19 History USEASDIRECTD lacosamide 300 mg PO BID 04/08/19 04/08/19 History levetiracetam 750 mg PO BID 04/08/19 04/08/19 History metformin 500 mg PO BID 04/08/19 04/08/19 History omega 4-ivp-tgq-fish oil [Fish Oil] 1 cap PO DAILY 04/08/19 04/08/19 History ondansetron 4 mg PO Q8H PRN 04/08/19 04/08/19 History sodium chloride 1,000 mg PO QD-QID 04/08/19 04/08/19 History tamsulosin 0.4 mg PO 04/08/19 History vitamin E 400 unit PO DAILY 04/08/19 04/08/19 History Allergies Allergy/AdvReac Type Severity Reaction Status Date / Time No Known Drug Allergies Allergy Verified 04/03/19 13:25 Review of Systems Review of Systems ROS Unobtainable: unobtainable due to mental status (Patient is non communicative, nonverbal) Exam Vital Signs (past 8 hours): - 04/07/19 22:56 04/07/19 23:01 04/07/19 23:41 Temperature 98.1 F Pulse Rate 95 H 97 H 92 H Respiratory Rate 18 17 18 Blood Pressure 187/87 H Blood Pressure [Right Arm] 174/90 H 166/89 H Pulse Oximetry 95 96 95 Oxygen Delivery Method Room Air Narrative Exam Narrative: GENERAL APPEARANCE: well developed, well nourished, stuporous, able to protect airway HEENT: Well healing craniotomy scar, left temporal and dentition, gaze conjugate, pupillary bounce 4-3 mm, conjunctiva clear, eyes will track bilaterally, no epistaxis, no oral trauma, mucous membranes are moist and pink. NECK/THYROID: neck supple, no JVD, no thyromegaly, trachea midline. LYMPH NODES: no cervical or supraclavicular lymphadenopathy. SKIN: [place], warm and dry, no suspicious lesions, no rashes, ulcerations or petechiae. HEART: regular rate and rhythm, S1-S2, 1/6 systolic murmur, no rubs or gallops, brisk capillary refill, no edema LUNGS: clear to auscultation bilaterally, no coarseness crackles or wheezing, no cough present CHEST: Symmetrical movement, no accessory muscle use, no pain to AP and lateral compression. ABDOMEN: Soft, no distention, no abdominal tenderness, no guarding or peritoneal signs, no organomegaly, no flank or suprapubic tenderness, active bowel tones. BACK: Normal curvature, nontender to palpation, no CVA tenderness on percussion EXTREMITIES: Spontaneous movement left upper and lower extremities, decreased muscle mass bilaterally, no deformities or joint effusions. NEUROLOGIC: stuporous, GCS of 9- eyes 2/verbal 3/motor 4, spontaneous movement of left hand, non seizure activity, muscular tone right arm, hyporeflexic right upper and lower extremities, normal Babinski left slight movement right. PSYCH: Stuporous minimally responsive to noxious stimulus Objective Labs Result Diagrams: 04/07/19 22:55 04/07/19 22:55 Labs: Laboratory Results - last 24 hr 04/07/19 04/07/19 04/07/19 22:55 22:55 22:55 WBC 7.9 RBC 4.60 Hgb 12.3 Hct 38.0 MCV 82.7 MCH 26.8 MCHC 32.4 RDW 14.9 H Plt Count 646 H Neut % (Auto) 64.9 Lymph % (Auto) 24.5 L [place] % (Auto) 7.1 Eos % (Auto) 2.2 Baso % (Auto) 1.3 Neut # (Auto) 5100 Lymph # (Auto) 1900 [place] # (Auto) 600 Eos # (Auto) 200 Baso # (Auto) 100 PT 11.6 INR 1.0 APTT 31 Sodium 136 L Potassium 3.7 Chloride 99 Carbon Dioxide 28 BUN 16 Creatinine 0.50 L Estimated GFR > 60.0 BUN/Creatinine Ratio 32.0 H Glucose 159 H Calcium 10.7 H Magnesium Prolactin 04/07/19 04/07/19 22:55 22:55 WBC RBC Hgb Hct MCV MCH MCHC RDW Plt Count Neut % (Auto) Lymph % (Auto) [place] % (Auto) Eos % (Auto) Baso % (Auto) Neut # (Auto) Lymph # (Auto) [place] # (Auto) Eos # (Auto) Baso # (Auto) PT INR APTT Sodium Potassium Chloride Carbon Dioxide BUN Creatinine Estimated GFR BUN/Creatinine Ratio Glucose Calcium Magnesium 1.9 Prolactin 129.0 H Assessment & Plan Assessment & Plan narrative: This is a 73-year-old female patient from a [facility] was brought to the ER by EMS with altered mental status. CT scan demonstrates resolving blood from previous craniotomy 1 month ago. The patient is admitted for seizure activity with slowly resolving postictal period on Keppra and Vimpat. Keppra level is drawn and sent out, patient is apparently given 500 mg of Keppra IV. The does not recall the name of her neurologist at [facility] and will bring the information in the morning. 1. Seizure, partial complex, secondary meningioma resection, present on admission, active. -patient is status post left temporal lobe resection for malignant meningioma. --head CT note prior left temporal low resection with resolving blood in the resection cavity compared to imaging of 04/02/2019. The remainder the exam is stable. -no description of seizure activity from the rehab facility staff, EMS called for unresponsiveness, patient with subtle left upper extremity rhythmic motion upon arrival. -patient has received her regular dosing of levetiracetam 750 mg twice daily and lacosamide 300 mg twice daily. -the patient's POLST indicates do not resuscitate status with comfort measures only, will treat seizures with a dose of 500 mg of levetiracetam IV and continue routine dosing anti seizure medications. -seizure precautions -IV normal saline at 75 cc an hour until more awake and able to take oral fluids. 2. Diabetes type 2, chronic, presumed controlled, active . -blood sugars 159 on chemistry obtained in the emergency department. -patient routinely takes metformin 500 mg twice daily and has correctional insulin noted on her transfer documentation from rehab. -fingerstick blood sugars every 6 hours until taking po's and then AC and HS. -will continue home regimen of metformin 500 mg twice daily. -ordered correctional insulin low range. 3. Essential hypertension, chronic, active -patient with elevated blood pressure upon arrival at 187/87. Documentation from [facility] notes amlodipine was held this morning. -blood pressure following admission to the floor is 146/77. -will continue home regimen of amlodipine 5 mg daily -will monitor blood pressures and treat as indicated. 4. Hyperlipidemia, chronic, stable -will continue home regimen atorvastatin 10 mg bedtime. VTE prophylaxis: SCDs and heparin 5000 units twice daily. The patient is admitted to the hospital related to risk of adverse events or complications related to further seizure activity. The patient is admitted observation status with expected length of stay to be less than 2 midnights. Scores GCS Anabelle coma scale eye opening: To pressure Gordon coma scale verbal response: Words Gordon coma scale motor response: Normal flexion Anabelle coma scale total score: 9
--- NOTE | 2019-04-08 01:35 | PC.NURSE ---
2340 NIH stroke scale deferred per Dr Mohan due to high suspicion for seizure with similar presentation and pt's obtunded status.
--- NOTE | 2019-04-08 02:56 | PC.ADMIT ---
Patient admitted to room 208 per stretcher from ER; spouse accompanied. Patient will open eyes when asked to do so and will move all extremities when directed but is non verbal. Hand grasps equal but weak. Breath sounds diminished but CTA; respirations are shallow. O2 sat on RA is 95%; on continuous oximetry. Initial telemetry reading recorded as afib + BBB with rate of 100 but when ADVICE LINE RN, Radha, spoken to later patient was in SR. BT hypoactive; abdomen is soft. Incontinent of urine although spouse reports she was continent prior to admission. Abrasion noted on left elbow. Has reddened skin around rectum with small open area near anus noted. Jordon score 8 so will reposition q1h to prevent additional skin breakdown. FLACC score is 0. Fall risk score is high and bed alarm is activated. Spouse reports patient's thought processes are getting back to normal following brain surgery 03/06/19. Reports patient has double vision if she has both eyes open but can see normally if she closes 1 eye. Reports earlier yesterday (before coming to hospital) patient could carry on a conversation but that her orientation waxes and wanes. Seizure pads placed on bed. Calf SCD's applied on admission. [address] Admission Note: The patient,Kady Hamm,73 y/o, was given written information regarding hospital policies, unit procedures and contact persons. Patient's smoking status: Former smoker. Vital Signs - 8 hr 04/07/19 22:56 04/07/19 23:01 04/07/19 23:41 Temperature 98.1 F Pulse Rate 95 H 97 H 92 H Respiratory Rate 18 17 18 Blood Pressure 187/87 H Blood Pressure [Right Arm] 174/90 H 166/89 H Pulse Oximetry 95 96 95 04/08/19 01:38 04/08/19 01:56 Temperature 96.7 F L Pulse Rate 105 H 97 H Respiratory Rate 16 16 Blood Pressure 147/87 H 146/77 H Blood Pressure [Right Arm] Pulse Oximetry 97 95
--- NOTE | 2019-04-08 03:59 | PC.NURSE ---
STEAM TRAP MAN note: tilted bed more towards left and put pillow more on left side.
[2019-04-08 07:18] LABS: Alanine Aminotransferase 39 IU/L (<35); Albumin 3.7 g/dL (3.5-5.0); Albumin Globulin Ratio 1.8 (1.0-2.8); Alkaline Phosphatase 82 U/L (38-126); Aspartate Aminotransferase 23 IU/L (14-36); Bilirubin Total 0.3 mg/dL (0.2-1.3); Blood Urea Nitrogen 15 mg/dL (7-17); Calcium 9.9 mg/dL (8.4-10.2); Carbon Dioxide 25 mmol/L (22-32); Chloride 103 mmol/L (98-107); Estimated Glomerular Filt Rate > 60.0 mL/min (>60); Globulin 2.1 g/dL (1.7-4.1); Glucose 114 mg/dL (80-110); HEMOLYSIS < 15 (0-50); Potassium 3.8 mmol/L (3.4-5.1); Sodium 136 mmol/L (137-145); Total Protein 5.8 g/dL (6.3-8.2)
[2019-04-08 07:21] LABS: Hemoglobin A1C% w Est Avg Glu 5.9 % (4.0-6.0)
--- NOTE | 2019-04-08 10:13 | CM.DANOTE ---
Addendum entered by Tara Gongora R.N. 04/08/19 14:50: Called , Aly, at home. Confirmed that patient's primary care provider is Dr. Ghada Bernal, out of [facility]. stated that she comes to the clinic 2 days a week. Discussed patient's status with , he is hoping that she can get strong enough to go through radiation. stated that before she was at [facility], which is part of [facility], and her second brain surgery was at [facility]. He stated, they should have given her radiation on her first surgery, since they did not get all of the cancer. At this point, is aware that patient could be discharged tomorrow if stable, and she is here for observation. Updated October at [facility] that patient could potentially be discharged tomorrow. Original Note: DCP: Case received, EMR reviewed and met with patient. Introduced self and role. Spoke briefly to patient, she did not recall some events, but was able to have brief conversation with her. was not present, he went back to [place]. Gained further information from October in admissions at [facility]). DCP assessment completed with information currently available. Patient is a 73 year old female who admitted early this morning to the care of the hospitalist. She had been in the ER yesterday, and code stroke was called. PCP: Unknown as of yet, patient could not recall Payer: Medicare/[employer]. Patient came to the hospital yesterday, via ambulance secondary to being unresponsive. Code stroke, had been called, but was questionable seizure. Patient has a history of malignant melanoma, and had craniotomy. She had been at [facility] for surgery, originally, then she went to [facility] rehab for a short amount of time, and then went to [facility]. Patient has not been at [facility] that long, according to October in admissions. Patient is DNR, comfort care, but was wanting her to come to hospital. Is noted, he wishes that she was a full code. She has been to , [place], for approximately 47 years, and is from [place]. Asked Anila at [facility] about mobility. She stated that she is able to sit on the edge of the bed, but is two person transfer. Stated, she has had these seizure like episodes before, where one minute she is ok, then, unresponsive. Patient is on seizure medications. Met with patient in her room, was awake and alert. She had difficulty recalling some events, such as being at [facility], or [place]. She remembers her , and living on [place]. P: DCP to follow closely. She will be working with speech, and therapy team today, and monitored for seizures. She could potentially discharge back to [facility] tomorrow. Tara Gongora RN/Manager Financial
[2019-04-08] MEDS: SODIUM CHLORIDE 0.9% 1,000 ML 75 ML IV ×2 (10:14→23:42)
[2019-04-08] MEDS: levETIRAcetam 250 MG TABLET 750 MG PO ×2 (10:34→21:17)
[2019-04-08] MEDS: HEPARIN 5,000 UNIT/ML VIAL 5000 UNIT SUBCUT ×2 (10:35→21:12)
[2019-04-08] MEDS: AMLODIPINE 5 MG TABLET PO (10:35)
--- NOTE | 2019-04-08 13:20 | PT.IIE ---
Surgical History (Last Reviewed 04/08/19 @ 02:09 by ANGE Salas) H/O craniotomy (Acute) History of hysterectomy (Acute) History of tubal ligation (Acute) S/P lobectomy of brain (Acute) Medical History (Last Reviewed 04/08/19 @ 02:09 by ANGE Salas) Diabetes type 2, controlled (Acute) Hypertension (Acute) Meningioma (Acute) Mixed hyperlipidemia (Acute) Physical Therapy Inpatient Evaluation/Re-Eval M1 PT/OT-IP Prior Functional Status Start: 04/08/19 10:54 Freq: NEEDED Status: Active Protocol: Document 04/08/19 12:12 AW (Rec: 04/08/19 13:20 AW [id number]) Medical Review Prior Functional Status Medical History Reviewed Yes Communication Unknown prior level. Contacted [facility] who report RADIAL ARM SAW OPERATOR had attempted evaluation 3 times but pt was too difficult to rouse/unable to attend. Attempted to contact pt's spouse but was unable to reach him Mobility and Gait Pt has been at [facility] for a few days. Therapy has been able to transfer her once, reporting max A x 2 for pivot transfer. Activities of Daily Living and IADL's Unable to assess based on EMR review and conversation with [facility] Prior Functional Level (Other details) Pt treated for an aggressive meningioma on 03/06/19 at and then began to experience seizures. Once stable, she was discharged to acute rehab at [facility]. Due to inability to participate, pt was transferred to [facility] a few days ago. Social History Living Arrangements Skilled Nurse Facility Additional Social History Comment Pt lives with her spouse on [facility] but currently resides at [facility] for rehab following craniotomy. M2 PT-IP Current Condition Start: 04/08/19 10:54 Freq: NEEDED Status: Active Protocol: Document 04/08/19 12:12 AW (Rec: 04/08/19 13:20 AW [id number]) Physical Therapy Current Condition Current Condition Evaluation Date 04/08/19 Treatment Diagnosis s/p craniotomy, impaired mobility Onset Date 03/06/19 Precautions Other Precautions seizures, recent left frontotemporal craniotomy Weight Bearing Status Weight Bearing Status Full Weight Bearing M3 PT-IP Subjective Start: 04/08/19 10:54 Freq: NEEDED Status: Active Protocol: Document 04/08/19 12:12 AW (Rec: 04/08/19 13:20 AW [id number]) Subjective Physical Therapy Visit Type Type Initial Evaluation Visit Start Time 11:20 Visit Stop Time 12:05 Total Visit Minutes 45 Number of MANAGER FLOAT Visits 0 Physical Therapy Visit Comments Patient Comments I don't know. It seems like something I could be doing. Patient Goals Pt unable to answer. M4 PT-IP Mobility and Gait Start: 04/08/19 10:54 Freq: NEEDED Status: Active Protocol: Document 04/08/19 12:12 AW (Rec: 04/08/19 13:20 AW [id number]) PT-Bed Mobility Assessment Rolling Type of Rolling Roll to Right,Roll to Left Level of Assist Minimal Assistance Supine to Sit Supine to Sit Moderate Assistance,1 Person Assistance,Head of Bed Elevated,Bedrails Sit to Supine Sit to Supine Moderate Assistance,1 Person Assistance,Head of Bed Elevated,Bedrails Scooting Scooting Up and Down in Bed Dependent PT-Transfer Assessment Sit to and From Stand Sit to and from Stand Moderate Assistance,1 Person Assistance,Use of Upper Extremities Equipment Transfer Assistive Device Gait Belt,Front Wheeled Walker Transfers Transfer Destination Bedside Commode Comments Mobility Comments Pt was alert, willing and motivated to mobilize. With HOB elevated, pt was able to move to the left with her left leg, but required assist to move her right leg. PT used the draw sheet to assist pt to EOB while pt assisted with use of bed rail left UE. Pt able to sit with UE support at EOB for ~4 minutes with fair seated balance. Pt completed sit to stand with FWW mod A x 1 twice, but reported dizziness in standing. She verbalized interest in transferring to [place], but changed her mind once standing . Pt returned to supine mod A x 1. She was able to roll to each side with min A x 1 for placement of additional draw sheet. Pt was boosted up in bed dependent with help of NAC . Repositioned pt in bed, call light within reach, 3 bed rails up, seizure pads in place, and bed alarm armed on sensitive setting. PT-Balance Assessment Comments Other Balance Tests/Deviations/Treatment Pt unable to accept balance : challenge in sitting with UE support possibly due to inability to follow instructions. M5 PT-IP Objective Assessments Start: 04/08/19 10:54 Freq: NEEDED Status: Active Protocol: Document 04/08/19 12:12 AW (Rec: 12/03/19 13:20 AW [id number]) Orientation Orientation/Cognition Level of Alertness Confusional State Orientation Name,Birthday Language Function Ability Garbled Speech,Word Finding Difficulties Safety Awareness Decreased Safety Awareness Memory Description Short Term Impaired,Wool Grower Impaired Comments Pt presents with word salad speech. When asked if she was aware of having difficulty with speech, she answered affirmatively. Pt repeated non -sensical phrases, was able to answer some questions appropriately. She was oriented to her name and birthdate but not to time, place, or situation, requiring frequent re-orientation but able to attend to task. Gross Range of Motion Lower Extremity ROM Assessment Bilaterally Impaired Strength Lower Extremity Strength Assessment Bilaterally Impaired Comments Strength Comments Pt able to follow some 1-step commands. MMT limited due to inability to follow directions , but hip strength clearly limited to no more than 3-/5. Coordination Assessment Gross Coordination Gross Coordination Impaired Sensation Assessment Comments Sensation Comments Unable to assess M7 PT-IP Assessment and Plan Start: 04/08/19 10:54 Freq: NEEDED Status: Active Protocol: Document 04/08/19 12:12 AW (Rec: 04/08/19 13:20 AW [id number]) PT Summary Assessment and Plan Potential Rehabilitation Potential Fair Status of Condition at Evaluation Evolving Summary Impairments ROM,Strength,Balance,Cognition ,Bed Mobility,Transfers,Gait, Activity Tolerance Assessment Summary Pt is a 73 yo woman s/p craniotomy on 03/06 for aggressive meningioma with subsequent seizures. She discharged from to acute rehab, but eventually transferred to SNF rehab at [facility] due to inability to participate. PLOF: Unclear regarding pt's function prior to surgery. [facility] reports therapy has transferred her once since admit a few days ago with max A x 2 but that she has been too unresponsive to participate much. Staff have been transferring her with mechanical lift. CLOF: Pt is alert but oriented only to self. She does report she is to [place] and lives in [place]. She knows her birthdate but is unable to provide any other details. She required mod assist for all bed mobility and sit to stand, declining transfer to bedside commode due to dizziness or unsteadiness. She will benefit from continued acute and sub- acute therapy to increase ability to participate in her own care. PT recommends return to SNF when medically stable. Goals Bed Mobility Goal Contact Guard Assistance Transfer Goal Contact Guard Assistance,Front Wheeled Walker Gait Goal Contact Guard Assistance,Front Wheel Walker Gait Distance 10 Days to Meet Goals 10 Frequency of Treatment Frequency Of Treatment Once a Day Treatment Plan Physical Therapy Treatment Plan Bed Mobility Training,Transfer Training,Gait Training, Therapeutic Exercise,Balance Retraining,Discharge Planning, Neuromuscular Re-ed, Coordination Retraining Other Recommendations and Next Treatment bed mobility, sitting balance, Focus transfer training Recommendations To Nursing Amount of Assist Needed Mechanical Lift Discharge Recommendations PT Discharge Recommendations SNF Rehab Other Discharge Recommendations Return to SNF rehab
[2019-04-08] MEDS: INSULIN ASPART 100 UNIT/ML INSULN PEN SUBCUT (13:48)
--- NOTE | 2019-04-08 14:50 | SLP.IPNOTE ---
ST orders received and evaluation attempted. Patient opened her eyes when verbally prompted, but was unable to maintain alertness and unresponsive to questions. Nursing aware. ST to re-attempt evaluation tomorrow.
--- NOTE | 2019-04-08 15:16 | OT.IP.TRT ---
Occupational Therapy Treatment Note M3 OT- IP Subjective and Pain Start: 04/08/19 15:13 Freq: Status: Active Protocol: Document 04/08/19 15:14 [facility] (Rec: 04/08/19 15:16 [facility] [id number]) OT- Subjective Occupational Therapy Visit Type Type Administrative Note Notes Attempted OT eval, pt able open her eyes briefly when nursing spoke to pt and then closed her eyes and was unresponsive. To check on pt tomorrow to see if pt more appropriate to be seen for OT eval.
--- NOTE | 2019-04-08 15:47 | CM.DPC ---
DCP Cont: Patient is obtunded at this time, just spoke to hospitalist. Patient is comfort care, and has been in the ER a couple of times already for these episodes. Unclear at this time what the root cause is. Called [facility] and spoke to October, asking why patient has been brought in, although the POLST stated comfort care. Stated that because patient is there for rehab and not comfort care, as well as the 's wishes, she was brought here. Called [facility] in Sunday to find out if her primary care provider, Dr. Bernal, is in office today. Workgroup Leader stated that she is currently in office. Let her know that our hospitalist would like to contact her for more information. Received a phone number of contact at: [phone]. Gave name and phone number for Dr. Hutchins to contact her. Dr. Edwards is also requesting records from [facility]. P: DCP to continue to follow and see how she progresses here in hospital. Plan is to return to [facility], but further goals of care may need to be discussed. At this time, it is unclear of the etiology of these episodes of patient, since no diagnostic imaging is being done. Tara Gongora RN/Plastic Die Maker Apprentice
--- NOTE | 2019-04-08 18:15 | PM.PN.1 ---
Subjective Subjective Date Patient Seen: 04/08/19 Exam Vital Signs (past 8 hours): - 04/08/19 15:33 04/08/19 20:30 Temperature 97.1 F L 97.0 F L Pulse Rate 93 H 85 Respiratory Rate 18 18 Blood Pressure 152/80 H 143/79 H Pulse Oximetry 98 98 Oxygen Delivery Method Room Air Oxygen Flow Rate 0 Objective Labs Result Diagrams: 04/07/19 22:55 04/08/19 06:47 Labs: Laboratory Results - last 24 hr 04/07/19 04/07/19 04/07/19 22:55 22:55 22:55 WBC 7.9 RBC 4.60 Hgb 12.3 Hct 38.0 MCV 82.7 MCH 26.8 MCHC 32.4 RDW 14.9 H Plt Count 646 H Neut % (Auto) 64.9 Lymph % (Auto) 24.5 L Blount % (Auto) 7.1 Eos % (Auto) 2.2 Baso % (Auto) 1.3 Neut # (Auto) 5100 Lymph # (Auto) 1900 Blount # (Auto) 600 Eos # (Auto) 200 Baso # (Auto) 100 PT 11.6 INR 1.0 APTT 31 Sodium 136 L Potassium 3.7 Chloride 99 Carbon Dioxide 28 BUN 16 Creatinine 0.50 L Estimated GFR > 60.0 BUN/Creatinine Ratio 32.0 H Glucose 159 H Hemoglobin A1c Calcium 10.7 H Magnesium Total Bilirubin AST ALT Alkaline Phosphatase Total Protein Albumin Globulin Albumin/Globulin Ratio Prolactin Urine Color Urine Appearance Urine pH Ur Specific [place] Urine Protein Urine Glucose (UA) Urine Ketones Urine Occult Blood Urine Nitrate Urine Bilirubin Urine Urobilinogen Ur Leukocyte Esterase Urine RBC Urine WBC Ur Squamous Epith Cells Urine Bacteria Hyaline Casts Urine Mucus Ur Culture Indicated? U Morph 300 ng/mL cutoff Ur Oxycodone Screen Urine Methadone Screen Ur Barbiturates Screen U Tricyclic Antidepress Ur Phencyclidine Scrn Ur Amphetamines Screen U Methamphetamines Scrn Ur MDMA Scrn (Ecstasy) U Benzodiazepines Scrn Urine Cocaine Screen U Marijuana (THC) Screen 04/07/19 04/07/19 04/08/19 22:55 22:55 06:47 WBC RBC Hgb Hct MCV MCH MCHC RDW Plt Count Neut % (Auto) Lymph % (Auto) Blount % (Auto) Eos % (Auto) Baso % (Auto) Neut # (Auto) Lymph # (Auto) Blount # (Auto) Eos # (Auto) Baso # (Auto) PT INR APTT Sodium 136 L Potassium 3.8 Chloride 103 Carbon Dioxide 25 BUN 15 Creatinine 0.50 L Estimated GFR > 60.0 BUN/Creatinine Ratio 30.0 H Glucose 114 H Hemoglobin A1c Calcium 9.9 Magnesium 1.9 Total Bilirubin 0.3 AST 23 ALT 39 H Alkaline Phosphatase 82 Total Protein 5.8 L Albumin 3.7 Globulin 2.1 Albumin/Globulin Ratio 1.8 Prolactin 129.0 H Urine Color Urine Appearance Urine pH Ur Specific [place] Urine Protein Urine Glucose (UA) Urine Ketones Urine Occult Blood Urine Nitrate Urine Bilirubin Urine Urobilinogen Ur Leukocyte Esterase Urine RBC Urine WBC Ur Squamous Epith Cells Urine Bacteria Hyaline Casts Urine Mucus Ur Culture Indicated? U Morph 300 ng/mL cutoff Ur Oxycodone Screen Urine Methadone Screen Ur Barbiturates Screen U Tricyclic Antidepress Ur Phencyclidine Scrn Ur Amphetamines Screen U Methamphetamines Scrn Ur MDMA Scrn (Ecstasy) U Benzodiazepines Scrn Urine Cocaine Screen U Marijuana (THC) Screen 04/08/19 04/08/19 04/08/19 06:47 19:14 19:14 WBC RBC Hgb Hct MCV MCH MCHC RDW Plt Count Neut % (Auto) Lymph % (Auto) Blount % (Auto) Eos % (Auto) Baso % (Auto) Neut # (Auto) Lymph # (Auto) Blount # (Auto) Eos # (Auto) Baso # (Auto) PT INR APTT Sodium Potassium Chloride Carbon Dioxide BUN Creatinine Estimated GFR BUN/Creatinine Ratio Glucose Hemoglobin A1c 5.9 Calcium Magnesium Total Bilirubin AST ALT Alkaline Phosphatase Total Protein Albumin Globulin Albumin/Globulin Ratio Prolactin Urine Color Yellow Urine Appearance Clear Urine pH 5.0 Ur Specific [place] >=1.030 H Urine Protein Negative Urine Glucose (UA) Negative Urine Ketones 1+ H Urine Occult Blood Negative Urine Nitrate Negative Urine Bilirubin Negative Urine Urobilinogen 0.2 Ur Leukocyte Esterase Trace H Urine RBC None seen Urine WBC 1-5/hpf Ur Squamous Epith Cells 1-5 /hpf Urine Bacteria None seen Hyaline Casts 1-5/lpf Urine Mucus 1+ H Ur Culture Indicated? Specimen cultured U Morph 300 ng/mL cutoff Negative Ur Oxycodone Screen Negative Urine Methadone Screen Negative Ur Barbiturates Screen Negative U Tricyclic Antidepress Negative Ur Phencyclidine Scrn Negative Ur Amphetamines Screen Negative U Methamphetamines Scrn Negative Ur MDMA Scrn (Ecstasy) Negative U Benzodiazepines Scrn Negative Urine Cocaine Screen Negative U Marijuana (THC) Screen Negative Assessment & Plan Assessment & Plan narrative: Brief Progress Note: The patient was seen and examined. She has moderate to severe expressive aphasia but is able to answer some questions appropriately. She is able to tell me she is not in pain. She is able to follow simple commands and squeeze hands and feet. Her mentation waxes and wanes. She is not obtunded as she initially presented. 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 Discussed case with on-call neurologist, Dr. Chambers, at the [facility] who recommended further evaluation of seizures depending on patient's goals of care. Placed a call to the patient's spouse and MARCO Hamm and discussed the patient's previous wishes and POLST in detail. The patient's spouse despite previous POLST form would like the patient to be transferred for further evaluation of seizure activity and treatment if present which is reasonable even for comfort measure. The patient was accepted for transfer by Dr. Chambers and placed on a wait list as [facility] does not currently have beds available. Quality VTE Deep Vein Thrombosis/Pulmonary Embolism Present on Admission: No
[2019-04-08 19:25] LABS: UR Morphine/Opiate cutoff 300 Negative (Negative); Ur Creatinine Normal (Normal); Ur Specific Gravity Normal (Normal); Urine Amphetamines Negative (Negative); Urine Barbiturates Negative (Negative); Urine Benzodiazepines Negative (Negative); Urine Cocaine Negative (Negative); Urine MDMA Negative (Negative); Urine Methadone Negative (Negative); Urine Methamphetamines Negative (Negative); Urine Oxycodone Negative (Negative); Urine Phencyclidine Negative (Negative); Urine Tetrahydrocannabinol Negative (Negative); Urine Tricyclic Antidepressant Negative (Negative); Urine pH Normal (Normal)
[2019-04-08 19:27] LABS: Bacteria Urine None Seen; RBC Urine None Seen (0-5/HPF)
[2019-04-08 19:28] LABS: Appearance Urine UA CLEAR; Bilirubin Urine UA NEGATIVE (NEGATIVE); Color Urine UA YELLOW; Glucose Urine UA NEGATIVE (Negative); Ketones Urine UA 1+ (NEGATIVE); Leukocyte Esterase Urine UA TRACE (NEGATIVE); Nitrite Urine UA NEGATIVE (Negative); Occult Blood Urine UA NEGATIVE (Negative); Protein Urine UA NEGATIVE (Negative); Specific Gravity Urine UA >=1.030 (1.000-1.035); Urobilinogen Urine UA 0.2 E.U./dL (0.2)
[2019-04-08 19:51] LABS: Hyaline Casts Urine 1-5/LPF; Mucus Urine 1+ (Negative); Squamous Epithelial Cell Urine 1-5 /HPF (0-5/HPF); WBC Urine 1-5/HPF (0-5/HPF)
[2019-04-08 19:52] LABS: Culture Indicated Urine Specimen Cultured
[2019-04-08] MEDS: SODIUM CHLORIDE 1,000 MG TABLET 1000 MG PO (21:11)
[2019-04-08] MEDS: ATORVASTATIN 10 MG TABLET PO (21:12)
[2019-04-08] MEDS: CHOLECALCIFEROL (VITAMIN D3) 1,000 UNIT TABLET 5000 UNIT PO (21:12)
[2019-04-08] MEDS: METFORMIN HCL 500 MG TABLET PO (21:13)
[2019-04-09] VITALS (9 sets, daily range): BP systolic 140–154; BP diastolic 84–98; PULSE 84–112; RESP 16–18; TEMP 36–36.9; O2SAT 96–99; BMI 20.5
--- NOTE | 2019-04-09 00:39 | PC.NURSE ---
Patient has eyes open and will track. Knows name and birthdate but when asked other orientation questions kept repeating 1946. Saying help but word salad when asked what she needs help with. Does follow commands. Weakness in all extremities. Respirations shallow and breath sounds are diminished but CTA with RA sat of 97%; on continuous oximetry. HRR but tachy at 111; telemetry reading was ST w/BBB. BT present and has been incontinent of B&B. Pressure area around rectum remains unchanged from admission. Jordon score was 8 so is being repostioned q1h; does move extremities but no purposeful movement. Wearing bilateral SCD's. Does not appear to be in any discomfort. Seizure pads on bed. Fall risk score is high and bed alarm is activated.
[2019-04-09] MEDS: CHOLECALCIFEROL (VITAMIN D3) 1,000 UNIT TABLET 5000 UNIT PO ×2 (08:55→21:25)
[2019-04-09] MEDS: AMLODIPINE 5 MG TABLET PO (08:55)
[2019-04-09] MEDS: METFORMIN HCL 500 MG TABLET PO ×2 (08:55→21:25)
[2019-04-09] MEDS: ASCORBIC ACID 500 MG TABLET 1000 MG PO (08:55)
[2019-04-09] MEDS: CYANOCOBALAMIN (VITAMIN B-12) 500 MCG TABLET PO (08:56)
[2019-04-09] MEDS: HEPARIN 5,000 UNIT/ML VIAL 5000 UNIT SUBCUT ×2 (08:56→21:26)
[2019-04-09] MEDS: SODIUM CHLORIDE 1,000 MG TABLET 1000 MG PO ×2 (08:57→21:25)
[2019-04-09] MEDS: SODIUM CHLORIDE 0.9% FLUSH 10 ML IV ×2 (08:57→21:26)
[2019-04-09] MEDS: levETIRAcetam 250 MG TABLET 750 MG PO ×2 (09:09→21:25)
--- NOTE | 2019-04-09 10:19 | ST.IPIE ---
ST IP Initial Evaulation Report THEATRICAL VARIETY AGENT Clinical Swallow Evaluation Start: 04/09/19 09:18 Freq: Status: Active Protocol: Document 04/09/19 09:18 [facility] (Rec: 04/09/19 09:31 [facility] [id number]) Clinical Swallow Evaluation Session Time Visit Start Time 08:00 Visit Stop Time 08:25 Total Visit Minutes 25 Visit Information Visit Number [address] 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 She experienced post surgical seizures. She was receiving rehab at [facility] and was transferred here after being found unresponsive. Subjective Observations Patient's mental status appears to wax and wane. Yesterday afternoon she was not responsive, but this morning she is awake and alert . Attempting to communicate, but having obvious difficulty getting words out. Evaluation Liquids Trialed Ice Chips,Thin Solids Trialed Puree,Mechanical Soft,Regular Administration Type Controlled Cup Sip,Straw, Dependent Feeding Oral Impairment WFL Oral Phase Comments No impairments in oral motor function observed during OME. Patient has natural dentition and oral mucosa is moist and pink. Patient needed assistance in feeding herself, but no oral phase impairments were observed. Pharyngeal Phase Comments Hyolaryngeal elevation present on palpation. Patient consumed trials of liquids and solids with feeding assistance without difficulty. No signs of aspiration observed. No complaints of difficulty swallowing. Findings Impressions No signs of oral or pharyngeal dysphagia observed. Diet Recommendations Liquids Order Thin Diet Order Regular Medication Recommendations As Tolerated Additional Dietary Needs 1:1 Assistance THEATRICAL VARIETY AGENT Language Evaluation Start: 04/09/19 09:18 Freq: Status: Active Protocol: Document 04/09/19 09:18 [facility] (Rec: 04/09/19 09:31 [facility] [id number]) Language Evaluation Previous Therapy Previous Speech-Language Therapy Yes - - Receptive Language Yes/No Questions Skill Level Mildly Impaired Following Directions - Verbal Skill Level WFL Auditory Comprehension Skill Level WFL Reading Comprehension Skill Level WFL Receptive Language Comments Receptive Language Comments Patient was able to follow simple directions for completing oral [facility] exam. She read words correctly off the dry erase board in her room. When asked yes/no questions about her orientation, she answered appropriately ~80% of the time. - Expressive Language Automatic Speech Skill Level Moderately Impaired Sentence Closure Skill Level Moderately Impaired Object Naming Skill Level Mildly Impaired Expressive Language Comments Expressive Language Comments Mildy impaired expressive language during automatic speech tasks, requiring verbal cues twice. Patient was able to complete confrontation naming for gloves, glasses, cup, kleenex, spoon, but had difficulty during phrase completion tasks such as you sit on a __ without a visual cue. She responded appropriately to some questions such as how did you sleep? for which she replied I was a little uncomfortable , but had significant difficulty expressing more complex ideas with many semantic paraphasias and a few neologisms. She has some awareness of errors and apologized over and over again for her speech. - Findings Language Findings Patient's language appears most consistent with moderate Broca's aphasia at this time characterized by difficulty expressing complex thoughts and relatively good auditory comprehension. Ongoing assessment is warranted. Treatment Goals Short Term Goals Kady will express her wants /needs in the hospital setting through use of picture communication board or verbal expression. Kady will verbally answer orientation questions with >90 % accuracy.
--- NOTE | 2019-04-09 10:50 | PT.IPTN ---
Physical Therapy Treatment Note M2 PT-IP Current Condition Start: 04/08/19 10:54 Freq: NEEDED Status: Active Protocol: Document 04/08/19 12:12 AW (Rec: 04/08/19 13:20 AW [id number]) Physical Therapy Current Condition Current Condition Evaluation Date 04/08/19 Treatment Diagnosis s/p craniotomy, impaired mobility Onset Date 03/06/19 Precautions Other Precautions seizures, recent left frontotemporal craniotomy Weight Bearing Status Weight Bearing Status Full Weight Bearing M3 PT-IP Subjective Start: 04/08/19 10:54 Freq: NEEDED Status: Active Protocol: Document 04/09/19 10:50 AB (Rec: 04/09/19 12:27 AB [id number]) Subjective Physical Therapy Visit Type Type Treatment Note Visit Start Time 10:50 Visit Stop Time 11:35 Total Visit Minutes 31 Number of GAS REFRIGERATOR SERVICER Visits 0 Physical Therapy Visit Comments Patient Comments pt requires encouragement to participate M4 PT-IP Mobility and Gait Start: 04/08/19 10:54 Freq: NEEDED Status: Active Protocol: Document 04/09/19 10:50 AB (Rec: 04/09/19 12:27 AB [id number]) PT-Bed Mobility Assessment Supine to Sit Supine to Sit Maximum Assistance,2 Person Assistance,Head of Bed Elevated Scooting Scooting to Edge of Bed Dependent PT-Transfer Assessment Sit to and From Stand Sit to and from Stand Maximum Assistance,2 Person Assistance,Use of Upper Extremities Equipment Transfer Assistive Device Gait Belt,Front Wheeled Walker Orthotic/Prosthetic Devices or Brace: No Transfers Transfer Destination Chair Transfer Technique Stand Step Pivot Transfer Ability Level of Assist Maximum Assistance,2 Person Assistance,Use of Upper Extremities Comments Mobility Comments pt required max Ax 2 for supine to sit. required max A to maintain sitting on EOB. tolerated ~ 7 min of sitting on EOB. required max A x 2 for sit to stand using FWW for support and completed pivot transfer max A x 2 and max cues to the chair using FWW. M5 PT-IP Objective Assessments Start: 04/08/19 10:54 Freq: NEEDED Status: Active Protocol: Document 04/08/19 12:12 AW (Rec: 04/08/19 13:20 AW [id number]) Orientation Orientation/Cognition Level of Alertness Confusional State Orientation Name,Birthday Language Function Ability Garbled Speech,Word Finding Difficulties Safety Awareness Decreased Safety Awareness Memory Description Short Term Impaired,Railroad Car Checker Impaired Comments Pt presents with word salad speech. When asked if she was aware of having difficulty with speech, she answered affirmatively. Pt repeated non -sensical phrases, was able to answer some questions appropriately. She was oriented to her name and birthdate but not to time, place, or situation, requiring frequent re-orientation but able to attend to task. Gross Range of Motion Lower Extremity ROM Assessment Bilaterally Impaired Strength Lower Extremity Strength Assessment Bilaterally Impaired Comments Strength Comments Pt able to follow some 1-step commands. MMT limited due to inability to follow directions , but hip strength clearly limited to no more than 3-/5. Coordination Assessment Gross Coordination Gross Coordination Impaired Sensation Assessment Comments Sensation Comments Unable to assess M6 PT-IP Treatment Start: 04/08/19 10:54 Freq: NEEDED Status: Active Protocol: Document 04/09/19 10:50 AB (Rec: 04/09/19 12:27 AB [id number]) Physical Therapy Treatment Education Education Provided Safety M7 PT-IP Assessment and Plan Start: 04/08/19 10:54 Freq: NEEDED Status: Active Protocol: Document 04/09/19 10:50 AB (Rec: 04/09/19 12:27 AB [id number]) PT Summary Assessment and Plan Potential Rehabilitation Potential Fair Summary Impairments Strength,Balance,Coordination, Tone,Cognition,Bed Mobility, Transfers,Gait,Activity Tolerance Progress Towards Goals Slow Progress due to Medical Issues,Slow Progress due to Activity Tolerance Assessment Summary pt requires 2 person assist with all mobility and has difficulty with following directions. pt presents with decrease activity tolerance and unable to particpate much during tx session. pt will require SNF rehab to improve strength and mobility. Goals Bed Mobility Goal Minimal Assistance Transfer Goal Minimal Assistance,Front Wheeled Walker Gait Goal Minimal Assistance,Front Wheel Walker Gait Distance 10 Days to Meet Goals 10 Frequency of Treatment Frequency Of Treatment Once a Day Treatment Plan Physical Therapy Treatment Plan Bed Mobility Training,Transfer Training,Gait Training, Therapeutic Exercise,Balance Retraining,Discharge Planning, Neuromuscular Re-ed, Coordination Retraining Other Recommendations and Next Treatment bed mobility, sitting balance, Focus transfer training Recommendations To Nursing Amount of Assist Needed Mechanical Lift Discharge Recommendations PT Discharge Recommendations SNF Rehab
--- NOTE | 2019-04-09 11:14 | OT.IP.EVAL ---
Past Medical History (Last Reviewed 04/08/19 @ 02:09 by ANGE Salas) Diabetes type 2, controlled (Acute) Hypertension (Acute) Meningioma (Acute) Mixed hyperlipidemia (Acute) Surgical History (Last Reviewed 04/08/19 @ 02:09 by ANGE Salas) H/O craniotomy (Acute) History of hysterectomy (Acute) History of tubal ligation (Acute) S/P lobectomy of brain (Acute) Occupational Therapy Inpatient Evaluation/Re-Eval M1 PT/OT-IP Prior Functional Status Start: 04/08/19 15:13 Freq: NEEDED Status: Active Protocol: Document 04/09/19 12:50 [facility] (Rec: 04/09/19 13:15 [facility] [id number]) Medical Review Prior Functional Status Medical History Reviewed Yes Communication Per PT eval:Unknown prior level. Contacted [facility] who report [facility]URNER had attempted evaluation 3 times but pt was too difficult to rouse/unable to attend. Attempted to contact pt's spouse but was unable to reach him Mobility and Gait Pt has been at [facility] for a few days. Therapy has been able to transfer her once, reporting max A x 2 for pivot transfer. Activities of Daily Living and IADL's Unable to assess based on EMR review and conversation with [facility] Prior Functional Level (Other details) Pt treated for an aggressive meningioma on 03/06/19 at and then began to experience seizures. Once stable, she was discharged to acute rehab at [facility]. Due to inability to participate, pt was transferred to [facility] a few days ago. Social History Living Arrangements Skilled Nurse Facility Additional Social History Comment Pt lives with her spouse on [facility] but currently resides at [facility] for rehab following craniotomy. M2 OT-IP Current Condition Start: 04/08/19 15:13 Freq: Status: Active Protocol: Document 04/09/19 12:50 [facility] (Rec: 04/09/19 13:15 [facility] [id number]) Occupational Therapy Current Condition Current Condition Evaluation Date 04/09/19 Treatment Diagnosis S/p craniotomy for malignant meningioma, weakness Diagnosis Onset Date 04/08/19 Weight Bearing Status Weight Bearing Status Weight Bear as Tolerated M3 OT- IP Subjective and Pain Start: 04/08/19 15:13 Freq: Status: Active Protocol: Document 04/09/19 12:50 [facility] (Rec: 04/09/19 13:15 [facility] [id number]) OT- Subjective Occupational Therapy Visit Type Type Initial Evaluation Visit Start Time 11:14 Visit Stop Time 11:34 Total Visit Minutes 20 Occupational Therapy Visit Comments Patient Comments Pt able to open eyes when letting her know that Ot/Pt going to get her up to the recliner. OT Pain Assessment Pain When Pain Assessed At Rest Pain Present Pain Present Unable to Respond FLACC Pain Scale Face No particular expression M4 OT- IP ADL's Start: 04/08/19 15:13 Freq: Status: Active Protocol: Document 04/09/19 12:50 [facility] (Rec: 04/09/19 13:15 [facility] [id number]) OT [id number] Comments OT Self-Feeding Comments Per BAG TURNER 1:1 assist needed for feeding at this time. Pt able to take cup with both hands. OT ADL-Grooming Comments OT Grooming Comments Pt dependent for grooming needs at this time. OT ADL-Oral Care General Eval Oral Care Ability Total Assistance OT ADL-Dressing General Eval Upper Body Dressing Ability Total Assistance Lower Body Dressing Ability Total Assistance OT ADL-Toileting General Evaluation Toileting Ability Total Assistance Areas Needing Assistance Manage Clothing,Perform Perineal Hygiene Comments OT Toileting Comments Nursing just in for change of brief and hygiene needs. M6 OT- IP Functional Cognition Start: 04/08/19 15:13 Freq: Status: Active Protocol: Document 04/09/19 12:50 [facility] (Rec: 04/09/19 13:15 [facility] [id number]) Cognitive Factors Limiting Selfcare Function Cognitive Ability Level of Alertness Drowsy Patient Orientation Name Cognitive Comments Cognitive Assessment Comments Pt able to open her eyes when name called. Pt having difficulty to follow directions for mobilty needs and needing vc, tacile and physical cues during movement. At times pt would say, stop or okay. Other times, pt just noted responding to questions asked. OT- Vision and Hearing OT- Vision Assessment Vision Assessment Comments Pt able to scan her eyes to see the therapist. M7 OT- IP Mobility and Balance Start: 04/08/19 15:13 Freq: Status: Active Protocol: Document 04/09/19 12:50 [facility] (Rec: 04/09/19 13:15 [facility] [id number]) OT- Bed Mobility Assessment Supine to Sit Supine to Sit Assist Maximum Assistance,2 Person Assistance Scooting Scooting to Edge of Bed Maximum Assistance,2 Person Assistance OT-Transfer Assessment Sit to and From Stand Sit to and from Stand Maximum Assistance,2 Person Assistance Transfers Transfer Ability Maximum Assistance,2 Person Assistance Technique Transfer Destination Bed,Chair Transfer Technique Stand Step Pivot Devices Transfer Assistive Devices Gait Belt,Front Wheeled Walker Comments Mobility Comments Pt needing MAX A x 2 to for balance, help keep pt upright, assist to block her knees, and advance the FWw fro the transfer from bed to recliner. OT- Balance Assessment Sitting Balance and Reactions Static Sitting Balance Ability Poor Dynamic Sitting Balance Ability Poor Standing Balance and Reactions Static Standing Balance Ability Poor Dynamic Standing Balance Ability Poor Comments Other Balance Tests/Deviations/Treatment Pt needing MODA to sit upright : and difficulty to sit to midline as leaning backwards. M8 OT- IP Objective Assessments Start: 04/08/19 15:13 Freq: Status: Active Protocol: Document 04/09/19 12:50 [facility] (Rec: 04/09/19 13:15 [facility] [id number]) OT Gross Range of Motion Upper Extremity Range of Motion Assessment Bilaterally Impaired OT Strength Upper Extremity Strength Assessment Bilaterally Impaired Comments Strength Comments Pt needing assist to help hold hands onto fww, having difficulty to use both hands to assist for bed mobility and ADL needs at this time. OT-Muscle Tone Assessment Muscle Tone WNL No Comments Muscle Tone Comments Decreased tone in RUE. M9 OT- IP Assessment and Plan Start: 04/08/19 15:13 Freq: Status: Active Protocol: Document 04/09/19 12:50 [facility] (Rec: 04/09/19 13:15 [facility] [id number]) OT Summary Assessment and Plan Potential Rehabilitation Potential Fair Analytic Complexity at Evaluation Moderate Summary OT Impairments Range of Motion,Strength, Balance,Coordination,Tone, Functional Cognition, Functional Mobility,Self- Feeding,Grooming,Dressing, Toileting,Bathing,Toilet Transfers,Shower Transfers Progress Towards Goals Slow Progress due to Medical Issues,Slow Progress due to Activity Tolerance,Slow Progress due to Cognition Assessment Summary Pt MOD complexity due to recent aggressive meningioma and surgery 03/06/19 with resection of tumor and had postoperative seizures per pt' s , then went to [facility] in [place] for acute care and then unable to tolerate and then went to [facility] for rehab. Since then pt mostly dependent for needs and needing two person assist for transfer stand pivot. Goal for OT to try to maximize pt's independence for especially grooming and eating needs. Pt looking to be transferred to today for higher care. Goals Self-Feeding Goal Standby Assistance Grooming Goal Standby Assistance Dressing Goal Moderate Assistance OT-Other Goals UB dressing goal MODA. Days to Meet Goals 20 Frequency of Treatment Frequency Of Treatment Once a Day Treatment Plan OT Treatment Plan ADL Training,Functional Cognition Training,Functional Mobility,Patient/Family Education,Discharge Planning Discharge Recommendations OT Discharge Recommendations SNF after being medically stable.
--- NOTE | 2019-04-09 11:32 | CM.DPC ---
DCP: continued: case received, EMR reviewed. Discussed in Team Rounds. Dr. Hutchins noted that she had discussed case with team at , she had an accepting physician and that she is working with RN coordinator Tonya on bed availability at the facility. A check in now with RN coordinator Tonya reveals that she is hopeful of a bed opening up there this afternoon. Will be following. UR NOMAN [place] confirms the admission status today remains OBS. Payer: Medicare and a commercial insurance.
--- NOTE | 2019-04-09 11:37 | PM.DS.1 ---
History of Present Illness History of Present Illness Date Patient Seen: 04/08/19 Chief complaint: Code Stroke Narrative: Written by Merlin CASSIDY: Ms. Kady Hamm is a 73 year old female history significant for malignant meningioma status post craniotomy x2, hypertension, diabetes and hyperlipidemia presents to the ER via EMS from [facility] with altered mental status. The patient had been interacting with staff 30 minutes prior to her being found unresponsive. The patient is incapable of providing information and her is at bedside with limited information. The patient had craniotomy for an aggressive meningioma on 03/06/2019 involving resection of tumor tissue. The patient had postoperative seizures with what is described by the is video EEG for seizure activity. The patient is treated with and still taking levetiracetam and lacosamide, was stabilized and transferred to [facility] in [place] for acute rehab. The patient was unable to adequately participate and was subsequently transferred to [facility] in [place] for continued rehabilitation within the last week. Since being at a [facility] the patient has had 2 other ER visits the 1st for fall out of bed in a closed head injury with the patient functioning at baseline and the 2nd for altered mental status described by staff as being awake and difficult to arouse. There is no evidence of or report of trauma. The patient is incapable of providing any subjective information. Apparently baseline functioning the patient has speech difficulties but is able to follow commands. Upon arrival to the ER the patient is afebrile with temperature of 98.1?, heart rate of 95, blood pressure 187/87, respirations of 18 saturating 95% on room air. The patient was taken directly to CT scan as a code stroke. Radiologist's impression takes noted of the prior left frontal temporal craniotomy and partial resection of left temporal lobe: Small amount of residual intraparenchymal hemorrhage along the posterior aspect of left temporal resection cavity, overall the intraparenchymal hemorrhage has diminished from prior imaging, no significant interval changes from imaging from 04/02/2019, stable left to right midline shift of 3 mm and small amount of pneumocephalus along the left temporal convexity. Left urinalysis finds white count of 7.9, hemoglobin of 12.3, hematocrit of 30.0 platelets of 646. Her coagulation studies are within normal limits. On with lytes she has a sodium of 136, potassium of 3.7 her BUN is 16 with creatinine of 0.5. Her nonfasting glucose is 159. Calcium is noted to be elevated at 10.7 30 decreased from prior results. She is on both levetiracetam and lacosanide for seizures. The patient has demonstrated increasing responsiveness while in the ER consistent with postictal status. A levetiracetam level was drawn which is unfortunately a send out so 500 mg is given IV in the emergency department. The patient's does not have the patient's neurologist's name but will bring information to the hospital tomorrow. The patient is admitted to the medicine service with seizure and has not returned to baseline level of functioning. Discharge Providers Provider Date of admission: 04/08/19 00:34 Discharge Date: 04/09/19 Consults: 04/08/19 00:23 Consult to Occupational Therapy Evaluate & Treat Comment: S/P allegra for malignant meningioma Physician Instructions: Evaluate and treat Consult to Physical Therapy Evaluate & Treat Comment: S/P allegra for malignant meningioma Physician Instructions: Evaluate and Treat 04/08/19 02:04 Consult to Dietitian, Adult Routine Comment: Reason For Exam: MNA score = 4 04/08/19 09:22 Consult to Speech Therapy Evaluate & Treat Comment: Physician Instructions: Evaluate and treat 04/09/19 11:24 Consult to Dietitian, Adult Routine Comment: Reason For Exam: low inessa score protocol Discharge provider: Isamar Hutchins DO Summary Hospital Course Discharge Diagnosis: 1. 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 Active. 2. Diabetes mellitus type II, non-insulin using, present on admission. Stable. 3. Hypertension, chronic, present on admission. Stable. 4. Hyperlipidemia, chronic, present on admission. Stable. Hospital Course: Kady Hamm is a 73-year-old female with a complex past medical history significant for malignant meningioma status post craniotomy x2 with nonconvulsive status epilepticus and previous CVA, hypertension, hyperlipidemia, diabetes mellitus type 2, non-insulin using, and hyperlipidemia presents to the ER via EMS from [facility] with altered mental status. 1. 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 Active. -The patient has complex medical history with history of aggressive and rapidly growing malignant meningioma status post resection in 2018 with recurrence and 2nd resection of left temporal meningioma on 03/06/2019. Patient has history of non-convulsive status epilepticus after brain resection and is on Vimpat and Keppra. -CT brain demonstrated prior left temporal low resection with resolving blood in the resection cavity compared to imaging of 04/02/2019. The remainder the exam is stable. -No description of seizure activity from the rehab facility staff but called EMS due to unresponsiveness. Patient did have subtle left upper extremity rhythmic motion upon arrival. Patient has received her regular dosing of levetiracetam 750 mg twice daily and lacosamide 300 mg twice daily without any reported missing doses. -Continued seizure precautions. -Continued IV fluid until able to take oral fluids. -Continued speech, physical and occupational therapy. -Ordered Keppra level which is a send out and pending. -Urinalysis does not appear grossly infected and urine toxicology screen negative. -The patient's mentation waxes and wanes and she has moderate to severe expressive aphasia. She is not obtunded as she initially presented. Concern for recurrent non-convulsive status epilepticus with several episodes of obtundation and multiple ER visits and steady decline in inpatient and skilled rehabilitation over the last 6 weeks since discharge from the [facility]. Discussed case with on-call neurologist, Dr. Chambers, at the [facility] who recommended further evaluation of seizures depending on patient's goals of care. Placed a call to the patient's spouse and MARCO Hamm and discussed the patient's previous wishes in POLST which indicated do not resuscitate and comfort measures only. The patient's spouse despite previous POLST form would like the patient to be transferred for further evaluation of seizure activity and treatment if present which is reasonable even as a comfort measure. The patient was accepted for transfer by Dr. Chambers and placed on a wait list at the [facility] due to no bed availability and likely will have a bed later this afternoon/evening. Dr. Chambers recommended continuing current dose of levetiracetam 750 mg twice daily and lacosamide 300 mg twice daily. 2. Diabetes mellitus type II, non-insulin using, present on admission. Stable. -Hemoglobin A1C 5.9% indicative of tight glycemic control and places patient in prediabetic range. -Continued metformin 500 mg twice daily. -Continued [facility] blood glucose checks and low-dose correctional scale insulin for additional coverage. 3. Hypertension, chronic, present on admission. Stable. -Continued home amlodipine 5 mg daily. 4. Hyperlipidemia, chronic, present on admission. Stable. -Continued home atorvastatin 10 mg bedtime. Exam Vital Signs (past 8 hours): - 04/09/19 04:05 04/09/19 08:00 04/09/19 11:09 Temperature 98.4 F 97.3 F L Pulse Rate 84 86 Respiratory Rate 16 18 Blood Pressure 147/93 H 140/84 Pulse Oximetry 97 98 98 Oxygen Delivery Method Room Air Oxygen Flow Rate 0 Narrative Exam Narrative: General: Older female sitting in bed and in no acute distress, awake but with eyes closed, will occasionally open one eye due to double vision, able to follow simple commands such as squeezing fingers and willing toes, moderate to severe expressive aphasia, at times able to effectively communicate and at other times has word salad. Mentation waxes and wanes. No longer obtunded. HEENT: Normocephalic, atraumatic. External ears without defect. Pupils equal, round, and reactive to light and accommodation. Anicteric sclerae, moist conjunctivae, and no lid lag. Oropharynx free of erythema and cobble stoning with moist mucosa. Neck: Supple with full range of motion. No jugular venous distension. No bruits. No lymphadenopathy or thyromegaly. Cardiovascular: Regular rate and rhythm without murmurs, rubs, or gallops appreciated Pulmonary: Clear to auscultation bilaterally without crackles, wheezes, or rhonchi. Normal respiratory effort with no use of accessory muscles. Abdomen: Soft, bowel sounds present, appears nontender, nondistended. No hepatosplenomegaly or masses appreciated. Extremities: No clubbing, cyanosis, or edema. Skin: Normal temperature, turgor, and texture; no rash, ulcers, or subcutaneous nodules appreciated. Neurological: Right-sided weakness and unable to wiggle right lower extremity toes. Moderate to severe expressive aphasia and at times able to effectively communicate and at other times has word salad. Mentation waxes and wanes. No longer obtunded. No tonic-clonic activity witnessed during hospitalization. Objective Labs Result Diagrams: 04/07/19 22:55 04/08/19 06:47 Labs: Laboratory Results - last 24 hr 04/08/19 04/08/19 19:14 19:14 Urine Color Yellow Urine Appearance Clear Urine pH 5.0 Ur Specific [place] >=1.030 H Urine Protein Negative Urine Glucose (UA) Negative Urine Ketones 1+ H Urine Occult Blood Negative Urine Nitrate Negative Urine Bilirubin Negative Urine Urobilinogen 0.2 Ur Leukocyte Esterase Trace H Urine RBC None seen Urine WBC 1-5/hpf Ur Squamous Epith Cells 1-5 /hpf Urine Bacteria None seen Hyaline Casts 1-5/lpf Urine Mucus 1+ H Ur Culture Indicated? Specimen cultured U Morph 300 ng/mL cutoff Negative Ur Oxycodone Screen Negative Urine Methadone Screen Negative Ur Barbiturates Screen Negative U Tricyclic Antidepress Negative Ur Phencyclidine Scrn Negative Ur Amphetamines Screen Negative U Methamphetamines Scrn Negative Ur MDMA Scrn (Ecstasy) Negative U Benzodiazepines Scrn Negative Urine Cocaine Screen Negative U Marijuana (THC) Screen Negative Discharge Plan Discharge orders & Medications Discharge Orders: Discharge (Order); Ordered 04/09/19 Ordered By: Isamar Hutchins Prescriptions: No Action metformin 500 mg Tablet 500 mg PO BID RF: 0 ascorbic acid (vitamin C) 1,000 mg Tablet 1,000 mg PO DAILY RF: 0 atorvastatin 10 mg Tablet 10 mg PO BEDTIME RF: 0 sodium chloride 1 gram Tablet 1,000 mg PO QD-QID RF: 0 amlodipine 5 mg Tablet 5 mg PO DAILY RF: 0 bisacodyl 10 mg Suppository 10 mg OK DAILY PRN (Reason: Constipation) RF: 0 levetiracetam 750 mg Tablet 750 mg PO BID RF: 0 ondansetron 4 mg Tablet,Disintegrating 4 mg PO Q8H PRN (Reason: Nausea) RF: 0 heparin (porcine) 5,000 unit/mL Solution 5,000 unit SUBCUT Q12H RF: 0 insulin lispro 100 unit/mL Cartridge 1 sliding scale dose SUBCUT USEASDIRECTD RF: 0 lacosamide 100 mg Tablet 300 mg PO BID RF: 0 cyanocobalamin (vitamin B-12) 500 mcg Tablet 500 mcg PO DAILY RF: 0 tamsulosin 0.4 mg Capsule 0.4 mg PO QPM RF: 0 vitamin E 400 unit Capsule 400 unit PO DAILY RF: 0 cholecalciferol (vitamin D3) [Vitamin D3] 1,000 unit Capsule 5,000 unit PO BID RF: 0 omega-3 fatty acids-fish oil [Fish Oil] 360-1,200 mg Capsule 1 cap PO DAILY RF: 0 Discharge Data Attending Provider: Merlin Vanegas Admit Date/Time: 04/08/19 00:34 Quality VTE Deep Vein Thrombosis/Pulmonary Embolism Present on Admission: No
--- NOTE | 2019-04-09 11:57 | DIET.PN ---
Dietary Progress Note Assessment: 73 y F admitted for stroke sx, failure of OP skilled rehab, possible acute seizures referred to nutrition for low MNA and Jordon r/t malnutrition HT: 157.4cm WT: 50.7kg BMI: 20.5 Labs: A1c 5.9 MNA: 4 malnourished Jordon: 8 poor Nutrition Diagnosis: Severe Acute PCM r/t reduction in physical and psysiological functioning s/p craniotomy x2 c resection for malignant meningeoma aeb pt POs <25% since admission 2d ago, BMI 20.5 (severe for age), pt failed rehab at two facilities in past 6w, pt presents c aphagia. Interventions: If pt unable to meet EERs via PO, consider option of nutrition support via EN/TPN if in accordance c POLT pt wishes. Diet Order: general EER: 1300kcal, 60g PRO (1.2 g/kg per malnutrition), 1.7L fluids Monitoring/Evaluations: pt is transferring to [facility] when bed opens
[2019-04-09] MEDS: INSULIN ASPART 100 UNIT/ML INSULN PEN SUBCUT (12:49)
[2019-04-09] MEDS: DOCUSATE 100 MG CAPSULE PO (21:26)
[2019-04-09] MEDS: ATORVASTATIN 10 MG TABLET PO (21:26)
[2019-04-10] VITALS (8 sets, daily range): BP systolic 123–139; BP diastolic 72–86; PULSE 78–88; RESP 15–18; TEMP 35.7–36.4; O2SAT 96–98
--- NOTE | 2019-04-10 01:26 | PC.NURSE ---
Patient mostly non verbal. Will state name, birthdate and age but then repeats 1946 for all other questions asked. Breath sounds diminished but CTA; respirations shallow and RA sat is 97%; on continuous oximetry. HRR; telemetry reading was SR w/BBB. BP remains elevated but stable at 148/88. BT present and abdomen is soft. Moves all extremities but does not turn self and has low Jordon score so is being repositioned q1h. Still with open area near rectum but less red around anus. Wearing bilateral calf SCD's. States no when asked about pain. Fall risk score is high and bed alarm is activated. Seizure pads on bed.
[2019-04-10] MEDS: POLYETHYLENE GLYCOL 3350 17 GM POWD.PACK PO (08:41)
[2019-04-10] MEDS: HEPARIN 5,000 UNIT/ML VIAL 5000 UNIT SUBCUT ×2 (08:42→22:23)
[2019-04-10] MEDS: DOCUSATE 100 MG CAPSULE PO ×2 (08:42→22:23)
[2019-04-10] MEDS: CYANOCOBALAMIN (VITAMIN B-12) 500 MCG TABLET PO (08:42)
[2019-04-10] MEDS: CHOLECALCIFEROL (VITAMIN D3) 1,000 UNIT TABLET 5000 UNIT PO ×2 (08:42→22:23)
[2019-04-10] MEDS: METFORMIN HCL 500 MG TABLET PO ×2 (08:42→22:23)
[2019-04-10] MEDS: AMLODIPINE 5 MG TABLET PO (08:42)
[2019-04-10] MEDS: ASCORBIC ACID 500 MG TABLET 1000 MG PO (08:43)
[2019-04-10] MEDS: SODIUM CHLORIDE 1,000 MG TABLET 1000 MG PO ×2 (08:44→23:32)
[2019-04-10] MEDS: levETIRAcetam 250 MG TABLET 750 MG PO (09:08)
[2019-04-10] MEDS: SODIUM CHLORIDE 0.9% FLUSH 10 ML IV ×2 (09:08→22:23)
--- NOTE | 2019-04-10 09:46 | PM.PN.1 ---
Subjective Subjective Date Patient Seen: 04/10/19 Interval history: Kady Hamm is a 73-year-old female with a complex past medical history significant for malignant meningioma status post craniotomy x2 with nonconvulsive status epilepticus and previous CVA, hypertension, hyperlipidemia, diabetes mellitus type 2, non-insulin using, and hyperlipidemia presents to the ER via EMS from [facility] with altered mental status. The patient is resting in bed comfortably. She is awake and alert this morning opening both eyes. She tends to be more awake and alert in the mornings and by mid afternoon is less interactive and sleeping. Her mentation waxes and wanes. She has moderate to severe expressive aphasia and has difficulty answering one way questions but when given two answer choices picks accurately. She at times articulates purposeful words and short sentences but at other times does not and speaks in word salad, neologims and has moderate to severe exprssive and receptive /wernickes aphasia. She is voiding and eliminating without difficulty. She is up with assistance. Exam Vital Signs (past 8 hours): - 04/10/19 12:00 04/10/19 15:50 Temperature 96.2 F L 97.6 F Pulse Rate 79 87 Respiratory Rate 16 18 Blood Pressure 124/72 130/72 Pulse Oximetry 98 98 Oxygen Delivery Method Room Air Oxygen Flow Rate 0 Narrative Exam Narrative: General: Older female sitting in bed and in no acute distress, awake and alert, both eyes are open, follow simple commands such as squeezing fingers and wiggling toes, moderate to severe expressive/receptive aphasia, at times able to effectively communicate and at other times has word salad. Mentation waxes and wanes. No longer obtunded. HEENT: Normocephalic, atraumatic. External ears without defect. Pupils equal, round, and reactive to light and accommodation. Anicteric sclerae, moist conjunctivae, and no lid lag. Oropharynx free of erythema and cobble stoning with moist mucosa. Neck: Supple with full range of motion. No lymphadenopathy or thyromegaly. Cardiovascular: Regular rate and rhythm without murmurs, rubs, or gallops appreciated Pulmonary: Clear to auscultation bilaterally without crackles, wheezes, or rhonchi. Normal respiratory effort with no use of accessory muscles. Abdomen: Soft, bowel sounds present, appears nontender, nondistended. No hepatosplenomegaly or masses appreciated. Extremities: No clubbing, cyanosis, or edema. Skin: Normal temperature, turgor, and texture; no rash, ulcers, or subcutaneous nodules appreciated. Neurological: Right-sided weakness and unable to wiggle right lower extremity toes. Moderate to severe expressive aphasia and at times able to effectively communicate and at other times has word salad. Mentation waxes and wanes. No longer obtunded. No tonic-clonic activity witnessed during hospitalization. Objective Labs Result Diagrams: 04/11/19 06:50 04/11/19 06:50 Assessment & Plan Assessment & Plan narrative: Kady Hamm is a 73-year-old female with a complex past medical history significant for malignant meningioma status post craniotomy x2 with nonconvulsive status epilepticus and previous CVA, hypertension, hyperlipidemia, diabetes mellitus type 2, non-insulin using, and hyperlipidemia presents to the ER via EMS from [facility] with altered mental status. 1. 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 Active. -The patient has complex medical history with history of aggressive and rapidly growing malignant meningioma status post resection in 2018 with recurrence and 2nd resection of left temporal meningioma on 03/06/2019. Patient has history of non-convulsive status epilepticus after brain resection and is on Vimpat and Keppra. -CT brain demonstrated prior left temporal low resection with resolving blood in the resection cavity compared to imaging of 04/02/2019. The remainder the exam is stable. -No description of seizure activity from the rehab facility staff but called EMS due to unresponsiveness. Patient did have subtle left upper extremity rhythmic motion upon arrival. Patient has received her regular dosing of levetiracetam 750 mg twice daily and lacosamide 300 mg twice daily without any reported missing doses. -Continue seizure precautions. -Continue IV fluid until able to take oral fluids. -Continue speech, physical and occupational therapy. -Ordered Keppra level which is a send out and pending. -Urinalysis does not appear grossly infected and urine toxicology screen negative. -The patient's mentation waxes and wanes and she has moderate to severe expressive aphasia. She is not obtunded as she initially presented. Concern for recurrent non-convulsive status epilepticus with several episodes of obtundation with multiple ER visits and steady decline in inpatient and skilled rehabilitation over the last 6 weeks since discharge from the [facility]. Discussed case with on-call neurologist, Dr. Chambers, at the [facility] who recommended further evaluation of seizures depending on patient's goals of care. Placed a call to the patient's spouse and MARCO Hamm and discussed the patient's previous wishes in POLST which indicated do not resuscitate and comfort measures only. The patient's spouse despite previous POLST form would like the patient to be transferred for further evaluation of seizure activity and treatment if present which is reasonable even as a comfort measure. The patient was accepted for transfer by Dr. Chambers on 04/08 and placed on a wait list at the [facility] due to no bed availability. Discussed case again with Dr. Chambers today on 04/10 who after review of records recommends increasing Keppra dose to 1000 mg twice daily (previously at 1500 mg twice daily and unclear why dose was lowered). Continue lacosamide 300 mg twice daily although more sedating and a very high dose (standard dose 200 mg twice daily). She also relays that the patient decided not to pursue radiation and wanted hospice per radiation oncologist Dr Nohelia Jimenez. Discussed comfort care with who does not echo this at all and is planning for his to radiation. There is clearly discrepancy in POLST and radiation oncologist report versus spouse. However, evaluation and abatement of seizures would be a comfort measure and provide the patient with the ability to truly attempt rehabilitation. 2. Diabetes mellitus type II, non-insulin using, present on admission. Stable. -Hemoglobin A1C 5.9% indicative of tight glycemic control and places patient in prediabetic range. -Continue metformin 500 mg twice daily. -Continue [facility] blood glucose checks and low-dose correctional scale insulin for additional coverage. 3. Hypertension, chronic, present on admission. Stable. -Continue home amlodipine 5 mg daily. 4. Hyperlipidemia, chronic, present on admission. Stable. -Continue home atorvastatin 10 mg bedtime. Disposition: Plan to transfer to the [facility] once a bed is available. Quality VTE Deep Vein Thrombosis/Pulmonary Embolism Present on Admission: No
--- NOTE | 2019-04-10 10:04 | PT.IPTN ---
Physical Therapy Treatment Note M2 PT-IP Current Condition Start: 04/08/19 10:54 Freq: NEEDED Status: Active Protocol: Document 04/08/19 12:12 AW (Rec: 04/08/19 13:20 AW [id number]) Physical Therapy Current Condition Current Condition Evaluation Date 04/08/19 Treatment Diagnosis s/p craniotomy, impaired mobility Onset Date 03/06/19 Precautions Other Precautions seizures, recent left frontotemporal craniotomy Weight Bearing Status Weight Bearing Status Full Weight Bearing M3 PT-IP Subjective Start: 04/08/19 10:54 Freq: NEEDED Status: Active Protocol: Document 04/10/19 09:51 AW (Rec: 04/10/19 10:03 AW [email or web address]) Subjective Physical Therapy Visit Type Type Treatment Note Visit Start Time 09:20 Visit Stop Time 09:50 Total Visit Minutes 30 Number of LANDSCAPE SPECIALIST Visits 0 Physical Therapy Visit Comments Patient Comments Pt was alert and eager to participate M4 PT-IP Mobility and Gait Start: 04/08/19 10:54 Freq: NEEDED Status: Active Protocol: Document 04/10/19 09:51 AW (Rec: 04/10/19 10:03 AW [id number]) PT-Bed Mobility Assessment Rolling Type of Rolling Roll to Right,Roll to Left Level of Assist Minimal Assistance,1 Person Assistance Supine to Sit Supine to Sit Moderate Assistance,1 Person Assistance,Head of Bed Elevated Sit to Supine Sit to Supine Moderate Assistance,1 Person Assistance Scooting Scooting to Edge of Bed Dependent Scooting Up and Down in Bed Dependent PT-Transfer Assessment Sit to and From Stand Sit to and from Stand Maximum Assistance,1 Person Assistance,Use of Upper Extremities Equipment Transfer Assistive Device Gait Belt,Front Wheeled Walker Orthotic/Prosthetic Devices or Brace: No Comments Mobility Comments Pt rolled side to side with min A x 1 for placement of draw sheet. She completed supine to sit with mod A x 1. Pt has poor control of right leg and was unable to adduct without assistance. She was dependent for scooting toward EOB and was unable to maintain sitting balance without max A in spite of cues and facilitation for hand placement and upright posture. Pt completed sit to stand max A x 1 and assist to block right leg. In standing with FWW, pt required max A x 1 to maintain standing balance with significant tendency for retropulsion. Pt complained of dizziness in standing. Returned to supine mod A x 1. She was dependent for scooting up in bed with PT and RN using draw sheet. Pt repositioned on left side with call light in reach. PT-Balance Assessment Sitting Balance and Reactions Static Sitting Balance Ability Poor Comments Other Balance Tests/Deviations/Treatment Pt unable to maintain seated : position EOB without max A for support, demonstrating poor trunk control and listing to left side. M5 PT-IP Objective Assessments Start: 04/08/19 10:54 Freq: NEEDED Status: Active Protocol: Document 04/08/19 12:12 AW (Rec: 04/08/19 13:20 AW [id number]) Orientation Orientation/Cognition Level of Alertness Confusional State Orientation Name,Birthday Language Function Ability Garbled Speech,Word Finding Difficulties Safety Awareness Decreased Safety Awareness Memory Description Short Term Impaired,Shelter Impaired Comments Pt presents with word salad speech. When asked if she was aware of having difficulty with speech, she answered affirmatively. Pt repeated non -sensical phrases, was able to answer some questions appropriately. She was oriented to her name and birthdate but not to time, place, or situation, requiring frequent re-orientation but able to attend to task. Gross Range of Motion Lower Extremity ROM Assessment Bilaterally Impaired Strength Lower Extremity Strength Assessment Bilaterally Impaired Comments Strength Comments Pt able to follow some 1-step commands. MMT limited due to inability to follow directions , but hip strength clearly limited to no more than 3-/5. Coordination Assessment Gross Coordination Gross Coordination Impaired Sensation Assessment Comments Sensation Comments Unable to assess M6 PT-IP Treatment Start: 04/08/19 10:54 Freq: NEEDED Status: Active Protocol: Document 04/09/19 10:50 AB (Rec: 04/09/19 12:27 AB [id number]) Physical Therapy Treatment Education Education Provided Safety M7 PT-IP Assessment and Plan Start: 04/08/19 10:54 Freq: NEEDED Status: Active Protocol: Document 04/10/19 09:51 AW (Rec: 04/10/19 10:03 AW [email or web address]) PT Summary Assessment and Plan Potential Rehabilitation Potential Fair Summary Impairments Strength,Balance,Coordination, Tone,Cognition,Bed Mobility, Transfers,Gait,Activity Tolerance Progress Towards Goals Slow Progress due to Medical Issues,Slow Progress due to Activity Tolerance Assessment Summary Pt dependent for bed mobility and mod to max A x 1 for mobility at bedside. Pt is able to follow directions at this encounter but presents with poor control of right lower extremity, limiting her bed mobility and standing tolerance. Speech and language improved at this meeting with word salad <25% of expressive communication. Goals Bed Mobility Goal Minimal Assistance Transfer Goal Minimal Assistance,Front Wheeled Walker Gait Goal Minimal Assistance,Front Wheel Walker Gait Distance 10 Days to Meet Goals 10 Frequency of Treatment Frequency Of Treatment Once a Day Treatment Plan Physical Therapy Treatment Plan Bed Mobility Training,Transfer Training,Gait Training, Therapeutic Exercise,Balance Retraining,Discharge Planning, Neuromuscular Re-ed, Coordination Retraining Other Recommendations and Next Treatment bed mobility, sitting balance, Focus transfer training Recommendations To Nursing Amount of Assist Needed 1 Person Assist Discharge Recommendations PT Discharge Recommendations SNF Rehab
--- NOTE | 2019-04-10 12:31 | OT.IP.TRT ---
Occupational Therapy Treatment Note M2 OT-IP Current Condition Start: 04/08/19 15:13 Freq: Status: Active Protocol: Document 04/09/19 12:50 CCC (Rec: 04/09/19 13:15 [facility] [id number]) Occupational Therapy Current Condition Current Condition Evaluation Date 04/09/19 Treatment Diagnosis S/p craniotomy for malignant meningioma, weakness Diagnosis Onset Date 04/08/19 Weight Bearing Status Weight Bearing Status Weight Bear as Tolerated M3 OT- IP Subjective and Pain Start: 04/08/19 15:13 Freq: Status: Active Protocol: Document 04/10/19 12:31 PJM (Rec: 04/10/19 14:08 PJ [email or web address]) OT- Subjective Occupational Therapy Visit Type Type Treatment Note Visit Start Time 12:05 Visit Stop Time 12:31 Total Visit Minutes 26 Notes Pt difficult to alert at start of session;requiring mod verbal and tactile cues. Occupational Therapy Visit Comments Patient Comments Pt mostly non verbal this session with some occasional short phrases with perseverative features noted. Patient/Caregiver Goals Pt unable to verbalize goal due to expressive aphasia and cognitive status OT Pain Assessment Pain When Pain Assessed At Rest Pain Present Pain Present Denied Pain M4 OT- IP ADL's Start: 04/08/19 15:13 Freq: Status: Active Protocol: Document 04/10/19 12:31 PJM (Rec: 04/10/19 14:08 PJ [email or web address]) OT GAW-Jhao-Gxycxka General Evaluation Diet Level for Self-Feeding general, thins Self-Feeding Ability Minimal Assistance Comments OT Self-Feeding Comments Pt needing hand over hand guiding to place cup in hand and bring straw to mouth. Pt able to eat sandwich with SBA . Min assist to load utensil for attempts at soup, then switched soup into cup to make it easier for pt to drink. Poor appetite noted and RN aware. OT ADL-Grooming General Evaluation Grooming Ability Moderate Assistance Areas Needing Assistance Retrieving/Set-up of Grooming Items,Face Washing Comments OT Grooming Comments Pt needing hand over hand guiding to bring washcloth to face; pt perseverating on washing hands. OT ADL-Toileting General Evaluation Toileting Ability Total Assistance M6 OT- IP Functional Cognition Start: 04/08/19 15:13 Freq: Status: Active Protocol: Document 04/10/19 12:31 PJM (Rec: 04/10/19 14:08 PJ [id number]) Cognitive Factors Limiting Selfcare Function Cognitive Ability Level of Alertness Drowsy Attention Span Ability Capable of Focused Attention, Unable to Sustain Attention Ability to Follow Commands Able to Follow One Step Commands with Increased Time, Able to Follow One Step Commands with Repetition Cognitive Comments Cognitive Assessment Comments Significant expressive language deficits interfere with assessment of orientation and functional cognition. Pt does follow one step commands with context OT- Vision and Hearing OT- Vision Assessment Vision Assessment Comments Pt able to track across midline to B sides but with nystagmus noted. No obvious visual spatial neglect observed this session. M8 OT- IP Objective Assessments Start: 04/08/19 15:13 Freq: Status: Active Protocol: Document 04/10/19 12:31 PJ (Rec: 04/10/19 14:08 [facility] [id number]) OT Strength Comments Strength Comments No obvious focal weakness noted in BUE's. Pt has antigravity strength duirng self care tasks. OT- Coordination Assessment Comments Coordination Comments Apraxia interferes with functional coordination during self feeding e.g. pt having difficulty loading eating utensil. M9 OT- IP Assessment and Plan Start: 04/08/19 15:13 Freq: Status: Active Protocol: Document 04/10/19 12:31 PJM (Rec: 04/10/19 14:08 [facility] [id number]) OT Summary Assessment and Plan Potential Rehabilitation Potential Fair Summary OT Impairments Range of Motion,Strength, Balance,Coordination, Functional Cognition, Functional Mobility,Self- Feeding,Grooming,Dressing, Toileting,Bathing,Toilet Transfers,Shower Transfers Progress Towards Goals Slow Progress due to Medical Issues,Slow Progress due to Activity Tolerance Assessment Summary Pt slow to alert this session, but eventually able to engage pt in self feeding. Pt had minimal verbalization this session with occasional short, perseverative phrases noted. Difficult to assess orientation, cognition due to expressive language deficits. Apraxia interfering with functional tasks such as face washing and loading utensil for self feeding. Per chart notes, pt may be transferring to for higher level of care. At this point, pt needs 24 hr care and recommend SNF for further rehab services when medically stable. Goals Self-Feeding Goal Standby Assistance Grooming Goal Standby Assistance Dressing Goal Moderate Assistance Toilet Transfer Goal Moderate Assistance,Bedside Commode OT-Other Goals UB dressing goal MODA. Days to Meet Goals 20 Frequency of Treatment Frequency Of Treatment Once a Day Treatment Plan OT Treatment Plan ADL Training,Functional Cognition Training,Functional Mobility,Patient/Family Education,Discharge Planning Discharge Recommendations OT Discharge Recommendations SNF Rehab
--- NOTE | 2019-04-10 14:48 | ST.IPTN ---
Visit Care Team Role Provider Type Marlo Mohan DO Emergency Provider Physician Address: [address] [place] [address], [id number] ANGE Salas Admit Provider Physician Attending Provider Address: [address] [place] [address], [id number] PLAN COORDINATOR Treatment Note PLAN COORDINATOR Treatment Note Start: 04/09/19 09:18 Freq: Status: Active Protocol: Document 04/10/19 14:28 LNK (Rec: 04/10/19 14:47 LNK [email or web address]) Speech Pathology Treatment Note Session Time Visit Start Time 10:45 Visit Stop Time 11:10 Total Visit Minutes 25 Setting Treatment Setting Acute Care Visit Type Note Type Treatment Note Next Note Type Next Note Type Treatment Note General Information General Information per language evaluation : Patient's language appears most consistent with moderate Broca's aphasia at this time characterized by difficulty expressing complex thoughts and relatively good auditory comprehension. Ongoing assessment is warranted. Subjective Identification Type Name,ID Wristband Observations/Patient Presentation Pt was in bed awake. She agreed to participate in therapeutic activities. She appeared to vacillate between being alert and staring off into space. Chief Complaint(s) Language Additional Areas of Concern Hard to distinguish cognition deficits from R/E aphasia Patient Knowledge/Awareness of PLAN COORDINATOR Role Fair in Treatment Objective Short Term Goals Kady will express her wants /needs in the hospital setting through use of picture communication board or verbal expression. Kady will verbally answer orientation questions with >90 % accuracy. Treatment Activities Observed pt with OT while attempting to self feed and follow directions. Pt had both or one of her eyes closed during treatments (OT/ST). With confrontational naming, pt was able to correctly name items in her room 2/5 opportunities. Perseveration, jargon speech and neologisms observed for remainder of task . Yes/No questions were answered 6/8 opportunities. Asking a direct question such as Where are you right now? was met with blank stare and answered I don't know. But if provided a choice of 2, pt was able to correctly answer at ~75-80% for most questions. At the end of the session, she asked the staff Can you put my bed down flatter? without any difficulty. Assessment Patient Response to Treatment Good Rehab Potential Good Impairments Identified Aphasia,Cognitive-Linguistic Skills,Expressive Language, Receptive Language Plan Comment 1-2x/day while inpatient Comment as tolerated
[2019-04-10] MEDS: ATORVASTATIN 10 MG TABLET PO (22:23)
[2019-04-10] MEDS: levETIRAcetam 250 MG TABLET 1000 MG PO (22:36)
--- NOTE | 2019-04-10 23:42 | PC.NURSE ---
Patient is alert and responding more verbally; able to carry on a conversation although does have expressive aphasia. Was able to state her name and birthdate but said her age was 23; when told she is 73 states well, I'm close. Did know month was April but did not know date or place. Breath sounds CTA with RA sat of 96%; on continuous oximetry. HRR; telemetry reading was SR w/BBB. Denies nausea. BT present and abdomen is soft. Incontinent of B&B most of the time. Being repositioned q1h due to low Jordon score and open area near anus. Open area same size but less red compared to admission. Patient is weak in all extremities but is able to move them. Denies pain. Did state she wanted us to remove the furniture on top of me. Requested bilateral calf SCD's be removed so taken off for next hour as per protocol. Fall risk score is high and bed alarm is activated.
[2019-04-11 03:05] VITALS: BP 144/87; PULSE 92; RESP 16; TEMP 36.2; O2SAT 98
[2019-04-11 07:10] VITALS: PULSE 82; O2SAT 95
[2019-04-11 07:26] LABS: Add Manual Diff / Slide Review NO; Basophils Absolute Auto 100 /uL (0-100); Basophils Percent Auto 1.2 % (0-2); Eosinophils Absolute Auto 100 /uL (0-450); Eosinophils Percent Auto 1.3 % (2-4); Hematocrit 33.9 % (36-46); Hemoglobin 11.2 g/dL (12.0-16.0); Lymphocytes Absolute Auto 1100 /uL (1100-4500); Lymphocytes Percent Auto 15.9 % (25-40); Mean Corpuscular HGB Conc 33.1 % (30-36); Mean Corpuscular Hemoglobin 26.8 PG (26-34); Mean Corpuscular Volume 80.9 fL (80-100); Monocytes Absolute Auto 400 /uL (0-900); Monocytes Percent Auto 6.1 % (3-14); Neutrophils Absolute Auto 5100 /uL (1500-7000); Neutrophils Percent Auto 75.5 % (50-75); Platelet Count 490 X10^3/uL (150-400); Red Blood Cell Count 4.19 X10^6/uL (4.0-5.2); Red Cell Distribution Width 14.5 % (11.6-14.8); White Blood Cell Count 6.7 X10^3/uL (4.5-11.0)
[2019-04-11 07:39] LABS: BUN Creatinine Ratio 22.5 (6-22); Blood Urea Nitrogen 9 mg/dL (7-17); Calcium 10.2 mg/dL (8.4-10.2); Carbon Dioxide 25 mmol/L (22-32); Chloride 100 mmol/L (98-107); Estimated Glomerular Filt Rate > 60.0 mL/min (>60); Glucose 98 mg/dL (80-110); HEMOLYSIS < 15 (0-50); Magnesium 1.5 mg/dL (1.6-2.3); Potassium 3.4 mmol/L (3.4-5.1); Sodium 136 mmol/L (137-145)
[2019-04-11 08:00] VITALS: BP 144/89; PULSE 93; RESP 16; TEMP 36.2; O2SAT 97
[2019-04-11] MEDS: levETIRAcetam 250 MG TABLET 1000 MG PO (08:32)
[2019-04-11] MEDS: CHOLECALCIFEROL (VITAMIN D3) 1,000 UNIT TABLET 5000 UNIT PO (08:33)
[2019-04-11] MEDS: ASCORBIC ACID 500 MG TABLET 1000 MG PO (08:34)
[2019-04-11] MEDS: METFORMIN HCL 500 MG TABLET PO (08:34)
[2019-04-11] MEDS: AMLODIPINE 5 MG TABLET PO (08:34)
[2019-04-11] MEDS: POLYETHYLENE GLYCOL 3350 17 GM POWD.PACK PO (08:34)
[2019-04-11] MEDS: DOCUSATE 100 MG CAPSULE PO (08:34)
[2019-04-11] MEDS: HEPARIN 5,000 UNIT/ML VIAL 5000 UNIT SUBCUT (08:34)
[2019-04-11] MEDS: SODIUM CHLORIDE 1,000 MG TABLET 1000 MG PO (08:35)
[2019-04-11] MEDS: SODIUM CHLORIDE 0.9% FLUSH 10 ML IV (08:38)
[2019-04-11] MEDS: CYANOCOBALAMIN (VITAMIN B-12) 500 MCG TABLET PO (08:41)
--- NOTE | 2019-04-11 10:05 | PM.PN.1 ---
Exam Vital Signs (past 8 hours): - 04/11/19 03:05 04/11/19 07:10 04/11/19 08:00 Temperature 97.2 F L 97.2 F L Pulse Rate 92 H 82 93 H Respiratory Rate 16 16 Blood Pressure 144/87 H 144/89 H Pulse Oximetry 98 95 97 Oxygen Delivery Method Room Air Oxygen Flow Rate 0 Objective Labs Result Diagrams: 04/11/19 06:50 04/11/19 06:50 Labs: Laboratory Results - last 24 hr 04/11/19 04/11/19 06:50 06:50 WBC 6.7 RBC 4.19 Hgb 11.2 L Hct 33.9 L MCV 80.9 MCH 26.8 MCHC 33.1 RDW 14.5 Plt Count 490 H Neut % (Auto) 75.5 H Lymph % (Auto) 15.9 L Brewster % (Auto) 6.1 Eos % (Auto) 1.3 L Baso % (Auto) 1.2 Neut # (Auto) 5100 Lymph # (Auto) 1100 Brewster # (Auto) 400 Eos # (Auto) 100 Baso # (Auto) 100 Sodium 136 L Potassium 3.4 Chloride 100 Carbon Dioxide 25 BUN 9 Creatinine 0.40 L Estimated GFR > 60.0 BUN/Creatinine Ratio 22.5 H Glucose 98 Calcium 10.2 Magnesium 1.5 L Quality VTE Deep Vein Thrombosis/Pulmonary Embolism Present on Admission: No
[2019-04-11 10:33] VITALS: PULSE 119; RESP 14; O2SAT 96
[2019-04-11] MEDS: LORazepam 2 MG/ML INJ (10:36)
--- NOTE | 2019-04-11 10:43 | SLP.IPNOTE ---
Attempted to see pt fo ST. Dr. Hutchins in pt room. Pt was having active siezure with emesis. Pt not appropriate for treatment at this time. Will try later if pt is able to participate.
[2019-04-11] MEDS: MAGNESIUM SULFATE 4 GM/100 ML PIGGYBACK IV (11:06)
--- NOTE | 2019-04-11 11:08 | OT.IP.TRT ---
Occupational Therapy Treatment Note M2 OT-IP Current Condition Start: 04/08/19 15:13 Freq: Status: Active Protocol: Document 04/09/19 12:50 [facility] (Rec: 04/09/19 13:15 [facility] [id number]) Occupational Therapy Current Condition Current Condition Evaluation Date 04/09/19 Treatment Diagnosis S/p craniotomy for malignant meningioma, weakness Diagnosis Onset Date 04/08/19 Weight Bearing Status Weight Bearing Status Weight Bear as Tolerated M3 OT- IP Subjective and Pain Start: 04/08/19 15:13 Freq: Status: Active Protocol: Document 04/11/19 11:06 [facility] (Rec: 04/11/19 11:08 [facility] [id number]) OT- Subjective Occupational Therapy Visit Type Type Administrative Note Notes Attempted to see pt with PT. Pt moving her left hand on the call light , but not responsive to her name and not opening her eyes. BP taken 155/101, 172/102, 155/97 while pt in bed with HOB up, nursing notified and came in to see pt.
[2019-04-11] MEDS: levETIRAcetam 1,000 MG in SODIUM CHLORIDE 0.9% 100 ML 440 ML IV (11:14)
--- NOTE | 2019-04-11 11:28 | PC.NURSE ---
Addendum entered by Kylie Navarro R.N. 04/11/19 15:02: Report given to Brian at [facility] Addendum entered by Kylie Navarro R.N. 04/11/19 14:55: Pt now waking up and responsive. Alert and oriented to self. Slow to respond. Original Note: Late entry 1015 - Pt non responsive and obtundent. Breathing normal with BP at 172/102, HR showing Afib RVR on the monitor running in the 130s. Dr Hutchins paged and arrived at bedside. Pt responsive to sternal rub and painful stimuli but not opening eyes. Pt starts vomitting, sat up in bed and started suction. RT at bedside, no signs of aspiration. Lungs clear. VO Dr Hutchins give 2mg IV ativan. BP now at 132/86 and HR running in low 100s. O2 stats steady at 96% on RA. Pt still obtundent. Pt apnic, VO started on 2L o2 per Dr Hutchins. VO Dr Hutchins give IV keppra and IV magnesium for low mag level of 1.5. Seizure precautions in place. VO Dr Hutchins hold 2nd dose of ativan for now. At 1100 HR now running low 100s still AFib on the monitor. 1140 - BP now at 92/61. VO Dr Hutchins give 500ml NS bolus and then start on maintenance dose at 100ml/HR. WCTM
[2019-04-11] MEDS: POTASSIUM CHLORIDE 60 MEQ in SODIUM CHLORIDE 0.9% 500 ML 88.333 ML IV (11:56)
[2019-04-11] MEDS: SODIUM CHLORIDE 0.9% 500 ML 1000 ML IV (11:58)
[2019-04-11 12:00] VITALS: BP 112/61; PULSE 84; RESP 16; TEMP 36.8; O2SAT 100
[2019-04-11] MEDS: SODIUM CHLORIDE 0.9% 1,000 ML 100 ML IV (12:39)
--- NOTE | 2019-04-11 13:44 | PT-IP ANOTE ---
checked on pt at 1008 with OT. pt is very lethargic attempted to wake up but unable. . checked BP: 177/109. informed nurse and nurse took over
[2019-04-11 13:54] LABS: Levetiracetam Keppra 40.1 mcg/mL (12.0-46.0)
--- NOTE | 2019-04-11 14:40 | PM.DS.1 ---
History of Present Illness History of Present Illness Chief complaint: Code Stroke Narrative: Written by Merlin CASSIDY: Ms. Kady Hamm is a 73 year old female history significant for malignant meningioma status post craniotomy x2, hypertension, diabetes and hyperlipidemia presents to the ER via EMS from [facility] with altered mental status. The patient had been interacting with staff 30 minutes prior to her being found unresponsive. The patient is incapable of providing information and her is at bedside with limited information. The patient had craniotomy for an aggressive meningioma on 03/06/2019 involving resection of tumor tissue. The patient had postoperative seizures with what is described by the is video EEG for seizure activity. The patient is treated with and still taking levetiracetam and lacosamide, was stabilized and transferred to [facility] in [place] for acute rehab. The patient was unable to adequately participate and was subsequently transferred to [facility] in [place] for continued rehabilitation within the last week. Since being at a [facility] the patient has had 2 other ER visits the 1st for fall out of bed in a closed head injury with the patient functioning at baseline and the 2nd for altered mental status described by staff as being awake and difficult to arouse. There is no evidence of or report of trauma. The patient is incapable of providing any subjective information. Apparently baseline functioning the patient has speech difficulties but is able to follow commands. Upon arrival to the ER the patient is afebrile with temperature of 98.1?, heart rate of 95, blood pressure 187/87, respirations of 18 saturating 95% on room air. The patient was taken directly to CT scan as a code stroke. Radiologist's impression takes noted of the prior left frontal temporal craniotomy and partial resection of left temporal lobe: Small amount of residual intraparenchymal hemorrhage along the posterior aspect of left temporal resection cavity, overall the intraparenchymal hemorrhage has diminished from prior imaging, no significant interval changes from imaging from 04/02/2019, stable left to right midline shift of 3 mm and small amount of pneumocephalus along the left temporal convexity. Left urinalysis finds white count of 7.9, hemoglobin of 12.3, hematocrit of 30.0 platelets of 646. Her coagulation studies are within normal limits. On with lytes she has a sodium of 136, potassium of 3.7 her BUN is 16 with creatinine of 0.5. Her nonfasting glucose is 159. Calcium is noted to be elevated at 10.7 30 decreased from prior results. She is on both levetiracetam and lacosanide for seizures. The patient has demonstrated increasing responsiveness while in the ER consistent with postictal status. A levetiracetam level was drawn which is unfortunately a send out so 500 mg is given IV in the emergency department. The patient's does not have the patient's neurologist's name but will bring information to the hospital tomorrow. The patient is admitted to the medicine service with seizure and has not returned to baseline level of functioning. Discharge Providers Provider Date of admission: 04/08/19 00:34 Discharge Date: 04/11/19 Consults: 04/08/19 00:23 Consult to Occupational Therapy Evaluate & Treat Comment: S/P allegra for malignant meningioma Physician Instructions: Evaluate and treat Consult to Physical Therapy Evaluate & Treat Comment: S/P allegra for malignant meningioma Physician Instructions: Evaluate and Treat 04/08/19 02:04 Consult to Dietitian, Adult Routine Comment: Reason For Exam: MNA score = 4 04/08/19 09:22 Consult to Speech Therapy Evaluate & Treat Comment: cognitive/communication Physician Instructions: Evaluate and treat 04/09/19 11:24 Consult to Dietitian, Adult Routine Comment: Reason For Exam: low inessa score protocol Discharge provider: Isamar Hutchins DO Summary Hospital Course Discharge Diagnosis: 1. Intermittent nonconvulsive status epilepticus, present on admission. Active. 2. Diabetes mellitus type II, non-insulin using, present on admission. Stable. 3. Hypertension, chronic, present on admission. Stable. 4. Hyperlipidemia, chronic, present on admission. Stable. Hospital Course: Hospital Course: Kady Hamm is a 73-year-old female with a complex past medical history significant for malignant meningioma status post craniotomy x2 with nonconvulsive status epilepticus and previous CVA, hypertension, hyperlipidemia, diabetes mellitus type 2, non-insulin using, and hyperlipidemia presents to the ER via EMS from [facility] with altered mental status. 1. Intermittent nonconvulsive status epilepticus, present on admission. Active. -The patient has complex medical history with history of aggressive and rapidly growing malignant meningioma status post resection in 2018 with recurrence and 2nd resection of left temporal meningioma on 03/06/2019. Patient has history of non-convulsive status epilepticus after brain resection and is on Vimpat and Keppra. -CT brain demonstrated prior left temporal low resection with resolving blood in the resection cavity compared to imaging of 04/02/2019. The remainder the exam is stable. -No description of seizure activity from the rehab facility staff but called EMS due to unresponsiveness. Patient did have subtle left upper extremity rhythmic motion upon arrival. Patient has received her regular dosing of levetiracetam 750 mg twice daily and lacosamide 300 mg twice daily without any reported missing doses. -Continued seizure precautions. -Continued IV fluid until able to take oral fluids. -Continued speech, physical and occupational therapy. -Ordered Keppra level which is a send out and pending. -Urine culture grew mixed urogenital fede and urine toxicology screen negative. -The patient's mentation waxes and wanes and she has moderate to severe expressive aphasia at baseline. Concerned for recurrent non-convulsive status epilepticus with several episodes of obtundation with multiple ER visits (04/02, 04/03 and 04/07) and steady decline in inpatient and skilled rehabilitation over the last 6 weeks since discharge from the [facility]. Discussed case with on-call neurologist, Dr. Chambers, at the [facility] who recommended further evaluation of seizures depending on patient's goals of care. Placed a call to the patient's spouse and MARCO Hamm and discussed the patient's previous wishes in POLST which indicated do not resuscitate and comfort measures only. The patient's spouse despite previous POLST form would like the patient to be transferred for further evaluation of seizure activity and treatment if present which is reasonable even as a comfort measure. The patient was accepted for transfer by Dr. Chambers and placed on a wait list at the [facility] due to no bed availability. Discussed case again with Dr. Chambers on 04/10 who after review of records recommended increasing Keppra dose to 1000 mg twice daily (previously at 1500 mg twice daily and unclear why dose was lowered). Continued lacosamide 300 mg twice daily although more sedating and a very high dose (standard dose 200 mg twice daily). She also relayed that the patient decided not to pursue radiation and wanted hospice per radiation oncologist Dr Nohelia Jimenez. Discussed comfort care with who does not echo this at all and is planning for his to received radiation. There is clearly discrepancy in POLST and radiation oncologist report versus spouse. However, evaluation and abatement of seizures would be a comfort measure and potentially provide the patient with the ability to truly attempt rehabilitation. The patient again became obtunded this morning 04/11 with rhythmical downward right gaze of both eyes and episode of emesis. She received Ativan 2 mg IV x1 with cessation of rhythmical eye movement. Her blood pressure dropped with systolic high 90s and received 500 cc bolus of NS with improvement of BP. She is maintaining her airway and vital signs are stable. She was thought to of when to atrial fibrillation however after review of telemetry was sinus tachycardia with HR 100-115 bpm. Ordered potassium chloride 60 mEq IV x1 and magnesium sulfate 4g IV x1 for low normal potassium level 3.4 and magnesium 1.5. Notified Dr. Chambers who recommended loading with Keppra 1000 mg IV x1 and starting Keppra 1500 mg twice daily in addition to lacosamide 300 mg twice daily. Plan to give Keppra 1500 mg IV twice daily. Unless patient becomes more awake and alert likely will not be able to take lacosamide today. 2. Diabetes mellitus type II, non-insulin using, present on admission. Stable. -Hemoglobin A1C 5.9% indicative of tight glycemic control and places patient in prediabetic range. -Continued metformin 500 mg twice daily. -Continued [facility] blood glucose checks and low-dose correctional scale insulin for additional coverage. 3. Hypertension, chronic, present on admission. Stable. -Continued home amlodipine 5 mg daily. 4. Hyperlipidemia, chronic, present on admission. Stable. -Continued home atorvastatin 10 mg bedtime. Exam Vital Signs (past 8 hours): - 04/11/19 07:10 04/11/19 08:00 04/11/19 10:33 Temperature 97.2 F L Pulse Rate 82 93 H 119 H Respiratory Rate 16 14 Blood Pressure 144/89 H Pulse Oximetry 95 97 96 04/11/19 12:00 Temperature 98.3 F Pulse Rate 84 Respiratory Rate 16 Blood Pressure 112/61 Pulse Oximetry 100 Oxygen Delivery Method Nasal Cannula Oxygen Flow Rate 2 Narrative Exam Narrative: Current exam on 04/11: General: Older female lying in bed obtunded and postictal, downward right gaze with rhythmical movement abated with Ativan, protecting and maintaining airway. HEENT: Normocephalic, atraumatic. External ears without defect. Pupils equal, round, and reactive to light. Anicteric sclerae andmoist conjunctivae. Neck: Supple with full range of motion. No lymphadenopathy or thyromegaly. Cardiovascular: Regular rhythm, mildly tachycardic, without murmurs, rubs, or gallops appreciated Pulmonary: Clear to auscultation bilaterally without crackles, wheezes, or rhonchi. Normal respiratory effort with no use of accessory muscles. Abdomen: Soft, bowel sounds present, appears nontender, nondistended. No hepatosplenomegaly or masses appreciated. Extremities: No clubbing, cyanosis, or edema. Skin: Normal temperature, turgor, and texture; no rash, ulcers, or subcutaneous nodules appreciated. Neurological: No tonic-clonic activity. Downward right gaze with rhythmical movement abated with Ativan. Obtunded and postictal. Mild apnea. Hemodynamically stable. Previous exam from previous day 04/10: General: Older female sitting in bed and in no acute distress, awake and alert, both eyes are open, follow simple commands such as squeezing fingers and wiggling toes, moderate to severe expressive/receptive aphasia, at times able to effectively communicate and at other times has word salad. Mentation waxes and wanes. No longer obtunded. HEENT: Normocephalic, atraumatic. External ears without defect. Pupils equal, round, and reactive to light and accommodation. Anicteric sclerae, moist conjunctivae, and no lid lag. Oropharynx free of erythema and cobble stoning with moist mucosa. Neck: Supple with full range of motion. No lymphadenopathy or thyromegaly. Cardiovascular: Regular rate and rhythm without murmurs, rubs, or gallops appreciated Pulmonary: Clear to auscultation bilaterally without crackles, wheezes, or rhonchi. Normal respiratory effort with no use of accessory muscles. Abdomen: Soft, bowel sounds present, appears nontender, nondistended. No hepatosplenomegaly or masses appreciated. Extremities: No clubbing, cyanosis, or edema. Skin: Normal temperature, turgor, and texture; no rash, ulcers, or subcutaneous nodules appreciated. Neurological: Right-sided weakness and unable to wiggle right lower extremity toes. Moderate to severe expressive aphasia and at times able to effectively communicate and at other times has word salad. Mentation waxes and wanes. No longer obtunded. No tonic-clonic activity witnessed during hospitalization. Objective Labs Result Diagrams: 04/11/19 06:50 04/11/19 06:50 Labs: Laboratory Results - last 24 hr 04/07/19 04/11/19 04/11/19 22:55 06:50 06:50 WBC 6.7 RBC 4.19 Hgb 11.2 L Hct 33.9 L MCV 80.9 MCH 26.8 MCHC 33.1 RDW 14.5 Plt Count 490 H Neut % (Auto) 75.5 H Lymph % (Auto) 15.9 L [place] % (Auto) 6.1 Eos % (Auto) 1.3 L Baso % (Auto) 1.2 Neut # (Auto) 5100 Lymph # (Auto) 1100 [place] # (Auto) 400 Eos # (Auto) 100 Baso # (Auto) 100 Sodium 136 L Potassium 3.4 Chloride 100 Carbon Dioxide 25 BUN 9 Creatinine 0.40 L Estimated GFR > 60.0 BUN/Creatinine Ratio 22.5 H Glucose 98 Calcium 10.2 Magnesium 1.5 L Levetiracetam 40.1 Discharge Plan Discharge Plan Patient Disposition: [facility] Other facility: [facility] Under care of provider: Dr. Chambers Diet/Activity/Treatments Diet: Nothing by Mouth Activity: Bed rest, seizure precautions Visit Report/Discharge Packet Visit Report Forms: Patient Portal/API, Stroke Signs & Symptoms Discharge Data Attending Provider: Merlin Vanegas Admit Date/Time: 04/08/19 00:34 Quality VTE Deep Vein Thrombosis/Pulmonary Embolism Present on Admission: No
--- NOTE | 2019-04-11 15:53 | CM.DPC ---
DCP Cont: Per , continuing to get pt transferred for her high Neurology need and has been accepted at but they have been full the past couple days. MD inquired if pt cannot be transferred if [facility] can accept back in the next day or two. SW called [facility] and left ms and received return call stating that administrators would prefer that pt have clear Comfort Care orders and plan in order to receive pt back at their facility but SW was unable to call for further information as pt then had a rapid response called due to having another seizure and per pt will not d/c today and currently return to SNF is not appropriate and will continue working on hospital transfer. Plan: SW to follow closely in the morning to determine pt status and if she was able to be transferred to higher level of care hospital. CANDIDO Kay
[2019-04-11 15:56] VITALS: BP 127/75; PULSE 97; RESP 18; TEMP 36; O2SAT 100
--- NOTE | 2019-04-11 19:57 | PC.NURSE ---
Transfer Note Patient A&Ox2, VSS, 100% 2L NC. No complaints of pain. PIV fluids running and K-rider infusing. Report given to EMS team per Dr Hutchins, packet given to EMS team. No further questions or concerns.
--- NOTE | 2019-04-21 15:54 | PC.NURSE ---
Late entry- Magnesium Sulfate stopped 04/11 1306 Potassium stopped 04/11 1756 Normal Saline started 04/08 0030 stopped 04/09 1121 Normal Saline started 04/11 1145 stopped 04/11 1957
== END 2019-04-11 15:20 | disposition short-term general hospital (02) ==
LOC: ED 04-08 00:34 → AC 04-08 00:35
PROVIDERS: Internal Medicine; Admitting Provider Nurse Practitioner Adult Health; Emergency Provider Emergency Medicine; Visit Provider Nurse Practitioner Adult Health
DX: G40.209 Localization-related (focal) (partial) symptomatic epilepsy and epileptic syndromes with complex partial seizures, not intractable, without status epilepticus (principal); R29.818 Other symptoms and signs involving the nervous system; C70.9 Malignant neoplasm of meninges, unspecified; E11.9 Type 2 diabetes mellitus without complications; I10 Essential (primary) hypertension; E78.2 Mixed hyperlipidemia; Z79.84 Long term (current) use of oral hypoglycemic drugs
CPT/HCPCS: 36415; 70450; 80048; 80053; 80177; 80305; 81001; 82962; 83036; 83735; 84146; 85025; 85610; 85730; 87086; 92507; 92523; 92610; 93005; 94760; 94762; 96361; 96365; 96366; 96367; 96372; 96375; 97163; 97166; 97530; 97535; 99283; 99284; 99291; G0378; J1644; J1953; J2060; J2405; J3475; J3480